=== PATIENT | female | born 1940 | race Caucasian/White ===

== ENCOUNTER 2025-03-16 01:32 | Inpatient (IN) ==
--- NOTE | 2025-03-16 01:55 | Emergency Department Note ---
History of Present Illness General Chief complaint: Arm Pain Stated complaint: L Arm Pain Time Seen by Provider: 03/16/25 01:34 History of Present Illness This 84-year-old female visiting from [place] with history of coronary artery disease who had a stent placed last year with hypertension and cholesterol presents ER for atraumatic left shoulder pain. Patient states she woke from sleep at the [facility] and had left shoulder pain that went to her elbow. She took some Advil and was concerned and came here. She is concerned she could be having another heart issue. Patient has chest pain, dyspnea, fever, chills, cough, congestion, injury to the area. She is actually sleeping on her right side. Patient states she does not get chest pain or winded with walking. She states she feels about baseline. Home Medications Medication Instructions Recorded Confirmed Type bisoprolol fumarate 5 mg tablet 5 mg PO BID 03/16/25 03/16/25 History cholecalciferol (vitamin D3) 100 1,000 unit PO DAILY 03/16/25 03/16/25 History mcg (4,000 unit) capsule clopidogrel 75 mg tablet (Plavix) 75 mg PO DAILY 03/16/25 03/16/25 History empagliflozin 10 mg tablet 10 mg PO DAILY 03/16/25 03/16/25 History (Jardiance) isosorbide mononitrate 30 mg 30 mg PO DAILY 03/16/25 03/16/25 History tablet,extended release 24 hr rosuvastatin 20 mg tablet 20 mg PO HS 03/16/25 03/16/25 History sacubitril 97 mg-valsartan 103 mg 1 tab PO BID 03/16/25 03/16/25 History tablet (Entresto) Allergies Allergy/AdvReac Type Severity Reaction Status Date / Time Gadolinium-Containing Allergy Anaphylaxis Verified 03/16/25 01:46 Contrast Medi Past Med/Surg History Problem List (Updated 03/16/25 @ 02:47 by Elsi Huerta PA-C) Anemia (Acute) Atypical chest pain (Acute) Social History Smoking Status: Never smoker Preferred Language: Sami Feels Safe at Home: Yes Review of Systems A total of 10 systems reviewed and were otherwise negative Physical Exam Vital Signs Vital Signs - 24 hr 03/16/25 01:34 03/16/25 01:42 03/16/25 02:53 Temperature 36.6 C Temperature Source Oral Pulse Rate 97 H Pulse Rate [Apical] 88 Pulse Rhythm [Apical] Regular Respiratory Rate 21 16 Respiratory Effort / Characteristics Non-Labored Non-Labored Respiratory Depth Normal Normal Blood Pressure 173/82 H Blood Pressure [Right Arm] 125/77 Blood Pressure Mean 112 Blood Pressure Mean [Right Arm] 93 Pulse Oximetry 95 97 Oxygen Delivery Method Room Air Room Air Room Air Sepsis Recent Fever Within 48 Hours No Sepsis New/Unexplained Change in Mental Status No Sepsis Action Taken by Nursing No Action Required VITALS: Vitals are noted on the nurse's note and reviewed by myself. Vital signs stable. GENERAL: Pleasant patient, in no acute distress, nondiaphoretic, well-developed well-nourished. SKIN: Capillary reflex less than 2 seconds. HEENT: Normocephalic. PERRLA. EOMI. Nares patent. Mucous membranes moist. Neck is supple without nuchal rigidity. HEART: Regular rate and rhythm LUNGS: Clear to auscultation bilaterally without wheezes, rales or rhonchi. No retractions or accessory muscle use. ABDOMEN: Positive bowel sounds x 4. Normal tympanic percussion. Soft, nontender, without masses or organomegaly. Palacios sign negative. No guarding or rebound tenderness. no CVA tenderness MUSCULOSKELETAL: No gross musculoskeletal defects. Left shoulder nontender to palpation with full range of motion. No signs of infection. NEURO: Patient was alert and oriented to person place and time. No focal neurological deficits. Course Administered Medications Discontinued Medications Ioversol (Optiray 320 125ml) 118 ml IV ONCE ONE Stop: 03/16/25 02:13 Last Admin: 03/16/25 02:12 Dose: 118 ml Documented By: PIOTR Medical Decision Making Medical Records Attestation: I reviewed the patient's medical records. Home Medications Current Medication List: was personally reviewed by me Laboratory Data Attestation: I reviewed the patient's lab results. 03/16/25 01:52 03/16/25 01:52 Lab Results 03/16/25 03/16/25 Range/Units 01:52 01:55 WBC 7.03 (4.8-10.8) K/ul RBC 4.20 (4.20-5.40) M/uL Hgb 10.3 L (12.0-16.0) g/dl POC Hgb 11.6 L (12.0-16.0) g/dl Hct 33.0 L (37.0-47.0) % POC Hct 34 L (37-47) % MCV 78.6 L (80.0-100.0) fL MCH 24.5 L (25.0-34.0) pg MCHC 31.2 L (32.0-36.0) g/dL RDW Std Deviation 43.4 (36.4-46.3) fL RDW Coeff of Tae 15.2 H (11.5-14.5) % Plt Count 367 (130-400) K/uL MPV 8.7 L (9.4-12.4) fL Immature Gran % (Auto) 0.1 % Neut % (Auto) 60.8 % Lymph % (Auto) 25.9 % Bureau % (Auto) 10.0 % Eos % (Auto) 2.6 % Baso % (Auto) 0.6 % Neut # (Auto) 4.28 (1.40-6.50) K/uL Lymph # (Auto) 1.82 (1.20-3.40) K/uL Bureau # (Auto) 0.70 H (0.11-0.59) K/uL Eos # (Auto) 0.18 (0.00-0.50) K/uL Baso # (Auto) 0.04 (0.00-0.20) K/uL Immature Gran # (Auto) 0.01 (0.01-0.20) K/uL POC Sodium 138 (135-144) mmol/L Sodium 137 (136-145) mmol/L POC Potassium 4.0 (3.3-5.0) mmol/L Potassium 4.1 (3.5-5.1) mmol/L POC Chloride 105 (101-112) mmol/L Chloride 104 (98-107) mmol/L Carbon Dioxide 24 (21-32) mmol/L POC Total CO2 24 (24-31) mmol/L Anion Gap 9 (3-11) POC Anion Gap 14.0 L (16-25) mmol/L POC BUN 21 H (7-18) mg/dl BUN 22 (6-23) mg/dl Creatinine 1.10 (0.6-1.2) mg/dl POC Creatinine 1.2 (0.6-1.3) mg/dl Est Cr Clr Drug Dosing 36.9 ml/min eGFR 49.55 BUN/Creatinine Ratio 20.0 (10-20) Glucose 162 H (70-99(Fasting)) mg/dl POC Glucose (other) 164 H (70-99) mg/dl Calcium 9.8 (8.6-10.3) mg/dl POC Ioniz Calcium Elsie 1.24 (1.12-1.32) mmol/l Total Bilirubin 0.4 (0.2-1.0) mg/dl AST 15 (13-39) U/L ALT 9 (7-52) U/L Alkaline Phosphatase 81 (34-104) U/L Troponin I High Sens 24.0 H (0-14) pg/ml Total Protein 7.2 (6.0-8.3) gm/dl Albumin 3.8 (3.4-5.0) gm/dl Globulin 3.4 (2.5-4.0) gm/dl Albumin/Globulin Ratio 1.1 (0.9-2) Lipase 19 (11-82) U/L Imaging Data Attestation: I personally reviewed and interpreted this imaging study as follows: Radiologist's Impression: Chest CTA 03/16/25 01:42 EXAM: CT angio chest PE protocol CLINICAL HISTORY: Chest Pain, eval for PE. TECHNIQUE: Contiguous axial images were obtained from the neck base through the upper abdomen following intravenous administration of iodinated contrast material. Angiographic images were processed, and 3D MIP images were acquired for interpretation. If IV contrast material had not been administered, the likelihood of detecting abnormalities relevant to the patient's condition would have been substantially decreased. Coronal and sagittal 3D MIPs were likewise performed and indicated to increase the sensitivity of detecting diffuse clinically relevant pathology. The CT scan was performed according to ALARA (as low as reasonably achievable). 118 cc of Optiray 320 was administered. COMPARISON: None. FINDINGS: Adequate contrast bolus was achieved without evidence of pulmonary embolism. Cardiomegaly is present with a dilated main pulmonary trunk measuring 34 mm in caliber. Mosaic attenuation is noted in both lungs. Bilateral mild basal atelectasis is present. The central airways are patent. There is no pleural effusion. No pericardial effusion is identified. The thyroid is unremarkable. No mediastinal, hilar, or axillary lymphadenopathy is noted. No suspicious lytic or sclerotic osseous lesions are identified. Approximately 52 x38mm soft tissue density lesion with peripheral calcifications and involvement of underlying chest muscles is seen in right breast. 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 IMPRESSION: 1. No evidence of pulmonary embolism. 2. Cardiomegaly is present with a dilated main pulmonary trunk measuring 34 mm in caliber, suggestive of pulmonary hypertension. Advised echocardiogram correlation. 3. Mosaic attenuation in both lungs, likely due to expiratory scan. Electronically signed by Adam Unger 03-16-2025 02:54 AM Shoulder X-Ray 03/16/25 01:42 EXAM: XR shoulder LT min 2V routine CLINICAL HISTORY: pain TECHNIQUE: Radiograph of the left shoulder was acquired. COMPARISON: None. FINDINGS: Multiple osteophytes arise from the head of the humerus with decreased glenohumeral joint space. There is no evidence of acute fracture or dislocation. The acromioclavicular joint space is preserved. The adjacent soft tissues appear unremarkable, with no evidence of joint effusion. IMPRESSION: 1. No acute osseous abnormality. 2. Degenerative changes in the form of multiple osteophytes arising from the head of the humerus with decreased glenohumeral joint space. Electronically signed by Adam Unger 03-16-2025 03:54 AM MDM Narrative Prior records/ancillary studies reviewed. Triage Nursing notes reviewed. Additional history obtained from family. The patient's history was concerning for left upper shoulder pain. Differential diagnosis: Etiologies such as cardiac ischemia, aortic dissection, pulmonary embolism, pneumonia, pneumothorax, musculoskeletal, infections, pericarditis, myocarditis, esophageal rupture, gastrointestinal, as well as others were entertained. Physical examination: As above. ER treatment provided: An order was placed for continuous cardiac monitoring. The monitor shows a rate of 60-100 with a sinus rhythm per my interpretation. Patient declined pain medicine On reassessment the patient felt better. Diagnostic interpretation by me: #1 the electrocardiogram was ordered for left upper shoulder pain EKG: Normal sinus, Q waves in the inferior leads, rate of 93. Impression normal sinus rhythm Q waves in the inferior leads independently interpreted by myself #2 EKG ordered for elevated troponin EKG: Normal sinus, Q waves in inferior leads, no acute ST-T wave changes, rate 88. Normal sinus rhythm Q waves in inferior leads independently interpreted by myself The labs Independently Interpreted by myself revealed slightly elevated troponin repeat was ordered No worrisome leukocytosis, mild anemia Mild hyperglycemia that DKA Imaging studies: Imaging was reviewed and read by radiology HEART SCORE: Hx: high/mod/low suspicion: 1 ECG: ST depression/nonspecific changes/normal: 0 Age: Greater than 65/45-64/less than 45: 2 Risk factors: (Hypertension, hyperlipidemia, diabetes, coronary disease, tobacco use, cocaine use): 2 Troponin: Greater than 2 times normal limits/1-2 times normal limits/normal: 1 Total: 6 Consultation: A consultation was placed with the hospitalist. The case was discussed and diagnostics were reviewed. The patient was evaluated in the ER for further treatment. Exam and history seem consistent with left upper shoulder pain with concerns for possible cardiac in etiology. First troponin was slightly elevated. Repeat was ordered. First EKG is nonischemic. Patient's risk factor is a moderate. Patient is agreeable treatment plan of admission. Medicine was consulted and the case was discussed. She will be admitted to the medical service. By the evaluation outlined above emergent etiologies such as aortic dissection, pulmonary embolism, pneumonia, pneumothorax, infections, pericarditis, myocarditis, gastrointestinal, as well as others were deemed relatively unlikely. The pt informed about the findings as listed above. All questions were answered and pleased with the treatment. The chart was completed utilizing [employer] Speech voice recognition software. Grammatical errors, random word insertions, pronoun errors, and incomplete sentences are an occassional consequence of this system due to software limitations, ambient noise, and hardware issues. Any formal questions or concerns about the content, text, or information contained within the body of this dictation should be directly addressed to the physician digital assistant for clarification. Impression & Plan Atypical chest pain, Anemia Discharge Plan Visit Data Chief Complaint: Arm Pain Stated Complaint: L Arm Pain ED Provider: Shira Mayberry ED Midlevel Provider: Elsi Huerta Discharge Problem: Atypical chest pain, Anemia Patient Disposition: Admitted As Inpatient Condition: Good Forms Stand Alone Forms: My [place] Prescriptions Prescriptions: No Action clopidogrel [Plavix] 75 mg Tablet 75 mg PO DAILY isosorbide mononitrate 30 mg Tablet Extended Release 24 Hr 30 mg PO DAILY bisoprolol fumarate 5 mg Tablet 5 mg PO BID rosuvastatin 20 mg Tablet 20 mg PO HS cholecalciferol (vitamin D3) 100 mcg (4,000 unit) Capsule 1,000 unit PO DAILY sacubitril-valsartan [Entresto] 97-103 mg Tablet 1 tab PO BID Jardiance 10 mg tablet 10 mg PO DAILY Referrals Referrals: PCP,NO [Physician] -
[2025-03-16 02:06] LABS: Hematocrit (blood only) 33.0 % (37.0-47.0); Hemoglobin 10.3 g/dl (12.0-16.0); Immature Granulocytes # (auto) 0.01 K/uL (0.01-0.20); Immature Granulocytes % (auto) 0.1 %; Mean Corpuscular Hemoglobin 24.5 pg (25.0-34.0); Mean Corpuscular Volume 78.6 fL (80.0-100.0); Platelet Count 367 K/uL (130-400); RDW Standard Deviation 43.4 fL (36.4-46.3); Red Blood Count 4.20 M/uL (4.20-5.40); White Blood Count 7.03 K/ul (4.8-10.8)
[2025-03-16] MEDS: OPTIRAY 320 125ml IV ONE (02:12)
[2025-03-16 02:26] LABS: Alanine Aminotransferase 9.0 U/L (7-52); Albumin Globulin Ratio 1.1 (0.9-2); Albumin Level 3.8 gm/dl (3.4-5.0); Alkaline Phosphatase 81.0 U/L (34-104); Anion Gap 9.0 (3-11); Bilirubin,Total 0.4 mg/dl (0.2-1.0); Blood Urea Nitrogen 22.0 mg/dl (6-23); Calcium 9.8 mg/dl (8.6-10.3); Carbon Dioxide 24.0 mmol/L (21-32); Chloride 104.0 mmol/L (98-107); Creatinine Clr Calc Pharmacy 36.9 ml/min; Globulin 3.4 gm/dl (2.5-4.0); Glucose 162.0 mg/dl (70-99(Fasting)); Lipase 19.0 U/L (11-82); Potassium 4.1 mmol/L (3.5-5.1); Sodium 137.0 mmol/L (136-145); Total Protein 7.2 gm/dl (6.0-8.3)
--- NOTE | 2025-03-16 02:55 | CT Scan Report ---
EXAM: CT angio chest PE protocol CLINICAL HISTORY: Chest Pain, eval for PE. TECHNIQUE: Contiguous axial images were obtained from the neck base through the upper abdomen following intravenous administration of iodinated contrast material. Angiographic images were processed, and 3D MIP images were acquired for interpretation. If IV contrast material had not been administered, the likelihood of detecting abnormalities relevant to the patient's condition would have been substantially decreased. Coronal and sagittal 3D MIPs were likewise performed and indicated to increase the sensitivity of detecting diffuse clinically relevant pathology. The CT scan was performed according to ALARA (as low as reasonably achievable). 118 cc of Optiray 320 was administered. COMPARISON: None. FINDINGS: Adequate contrast bolus was achieved without evidence of pulmonary embolism. Cardiomegaly is present with a dilated main pulmonary trunk measuring 34 mm in caliber. Mosaic attenuation is noted in both lungs. Bilateral mild basal atelectasis is present. The central airways are patent. There is no pleural effusion. No pericardial effusion is identified. The thyroid is unremarkable. No mediastinal, hilar, or axillary lymphadenopathy is noted. No suspicious lytic or sclerotic osseous lesions are identified. Approximately 52 x38mm soft tissue density lesion with peripheral calcifications and involvement of underlying chest muscles is seen in right breast. 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 IMPRESSION: 1. No evidence of pulmonary embolism. 2. Cardiomegaly is present with a dilated main pulmonary trunk measuring 34 mm in caliber, suggestive of pulmonary hypertension. Advised echocardiogram correlation. 3. Mosaic attenuation in both lungs, likely due to expiratory scan. Electronically signed by Adam Unger 03-16-2025 02:54 AM
--- NOTE | 2025-03-16 03:47 | History & Physical Report ---
Date of Service March 16, 2025 Assessment & Plan (1) Asymptomatic hypertensive urgency: Plan: Assessment and plan below following discussion of case with ED provider and reviewing patient history/pertinent normal/abnormal diagnostic test results. Hypertensive urgency Secondary to left shoulder pain Troponin elevation secondary to above CHF, euvolemic hx CAD status post stent (2023) hyperlipidemia, on statin Rx Incidental finding of right breast density on imaging, hx right breast cancer status post surgery/radiation, patient says she has had a palpable lump for some time now which she attributes to scarring chronic anemia, hemoglobin at baseline Hyperglycemia rule out DM OBS Admit to PCU given troponin elevation Analgesia Titrate home BP meds Follow troponin TTE for progression May need Cardiology input Orthopedics consult re: left shoulder pain Follow-up with PCP regarding right breast density on imaging. (Patient provided with CD of images and and copy report.) Check hemoglobin A1c DVT prophylaxis. Lovenox subcu Full code Text document was generated using [employer] voice recognition software. It may contain grammatical or spelling errors. Kindly contact undersigned for clarification of any documentation item in question. History of Present Illness Chief Complaint: Left shoulder pain Primary Care Provider: PCP: PEGGY MINER Engineer Sergeant : Dr. Charlie Palacios, [facility] History obtained from patient and records. Medical history significant for CHF, CAD status post stent (2023), hypertension, hyperlipidemia, right breast cancer status post surgery/radiation, chronic anemia (baseline hemoglobin of 10). Patient is a resident of [place] who arrived in [facility] 2 days ago to attend a local convention. Recent confinement last month at [facility] for lower GI bleed attributed to diverticulosis. Hemoglobin 10 during confinement as per patient. Patient has had intermittent left shoulder pain occurring about twice a year for about the last 5 years. Decreased ability to elevate left upper extremity for a few years now as per dawna ocampo. No recollection of trauma or exertion except for an incident [place] the beach last month after a person accidentally bumped into her beach chair. Transient neck pain following episode. Patient roused from sleep by more intense achy left shoulder pain going to the elbow. Denies headache, chest pain, SOB. Denies cough or fluid retention. Patient had substernal chest without shoulder radiation last year when she had her heart attack [facility] Patient compliant with home medications. Denies unusual stress. [facility] catering staff member concerned about uncontrolled blood pressure on last outpatient visit last month. Denies sleep apnea concerns. SBP 170s upon arrival at the ER. Patient currently comfortable at the ER. 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 Allergies Allergy/AdvReac Type Severity Reaction Status Date / Time Gadolinium-Containing Allergy Anaphylaxis Verified 03/16/25 01:46 Contrast Medi Home Medications Medication Instructions Recorded Confirmed Type bisoprolol fumarate 5 mg tablet 5 mg PO BID 03/16/25 03/16/25 History cholecalciferol (vitamin D3) 100 1,000 unit PO DAILY 03/16/25 03/16/25 History mcg (4,000 unit) capsule clopidogrel 75 mg tablet (Plavix) 75 mg PO DAILY 03/16/25 03/16/25 History empagliflozin 10 mg tablet 10 mg PO DAILY 03/16/25 03/16/25 History (Jardiance) isosorbide mononitrate 30 mg 30 mg PO DAILY 03/16/25 03/16/25 History tablet,extended release 24 hr rosuvastatin 20 mg tablet 20 mg PO HS 03/16/25 03/16/25 History sacubitril 97 mg-valsartan 103 mg 1 tab PO BID 03/16/25 03/16/25 History tablet (Entresto) Past Med/Surg History Problem List (Updated 03/16/25 @ 05:30 by Wilman Jose MD) Asymptomatic hypertensive urgency Anemia (Acute) Atypical chest pain (Acute) Social History Smoking Status: Never smoker Hx Alcohol Use: Yes Alcohol type: beer Hx Substance Use: No Preferred Language: Emirati Communication Ability: Effective Store Team Leader Required: No Beliefs That Will Affect Care: None Current Living Situation: Alone Current Living Situation Comment: house, alone Other Information That Helps Us Care for You: No Feels Safe at Home: Yes Safety Concerns: Feels Safe At This Time Review of Systems Review of Systems: As per HPI, all other systems reviewed and negative Physical Exam Physical Exam: GENERAL: Comfortable, pleasant, obese, no respiratory distress SKIN: Pallor, warm HEENT: Pale palpebral conjunctivae, no ptosis, dry buccal mucosa NECK : Supple, no tenderness CHEST : CTA, no tenderness HEART : RRR, systolic murmur ABDOMEN: Some distention, nontender EXTREMITIES : Left shoulder tenderness with limited elevation, no LE swelling/tenderness, palpable pulses, no other conspicuous deformities noted NEUROLOGIC : Coherent, no facial asymmetry, no other gross focality Results & Data Results & Data Vital Signs (Past 12 Hours) Vital Signs Temp Pulse Pulse Resp BP BP Pulse Ox 03/16/25 02:53 88 16 125/77 97 03/16/25 01:42 03/16/25 01:34 36.6 C 97 H 21 173/82 H 95 O2 Del Method 03/16/25 02:53 Room Air 03/16/25 01:42 Room Air 03/16/25 01:34 Room Air Laboratory Results Laboratory Results WBC 7.03 K/ul (4.8-10.8) 03/16/25 01:52 RBC 4.20 M/uL (4.20-5.40) 03/16/25 01:52 Hgb 10.3 g/dl (12.0-16.0) L 03/16/25 01:52 POC Hgb 11.6 g/dl (12.0-16.0) L 03/16/25 01:55 Hct 33.0 % (37.0-47.0) L 03/16/25 01:52 POC Hct 34 % (37-47) L 03/16/25 01:55 MCV 78.6 fL (80.0-100.0) L 03/16/25 01:52 MCH 24.5 pg (25.0-34.0) L 03/16/25 01:52 MCHC 31.2 g/dL (32.0-36.0) L 03/16/25 01:52 RDW Std Deviation 43.4 fL (36.4-46.3) 03/16/25 01:52 RDW Coeff of Tae 15.2 % (11.5-14.5) H 03/16/25 01:52 Plt Count 367 K/uL (130-400) 03/16/25 01:52 MPV 8.7 fL (9.4-12.4) L 03/16/25 01:52 Immature Gran % (Auto) 0.1 % 03/16/25 01:52 Neut % (Auto) 60.8 % 03/16/25 01:52 Lymph % (Auto) 25.9 % 03/16/25 01:52 Sharkey % (Auto) 10.0 % 03/16/25 01:52 Eos % (Auto) 2.6 % 03/16/25 01:52 Baso % (Auto) 0.6 % 03/16/25 01:52 Neut # (Auto) 4.28 K/uL (1.40-6.50) 03/16/25 01:52 Lymph # (Auto) 1.82 K/uL (1.20-3.40) 03/16/25 01:52 Sharkey # (Auto) 0.70 K/uL (0.11-0.59) H 03/16/25 01:52 Eos # (Auto) 0.18 K/uL (0.00-0.50) 03/16/25 01:52 Baso # (Auto) 0.04 K/uL (0.00-0.20) 03/16/25 01:52 Immature Gran # (Auto) 0.01 K/uL (0.01-0.20) 03/16/25 01:52 POC Sodium 138 mmol/L (135-144) 03/16/25 01:55 Sodium 137 mmol/L (136-145) 03/16/25 01:52 POC Potassium 4.0 mmol/L (3.3-5.0) 03/16/25 01:55 Potassium 4.1 mmol/L (3.5-5.1) 03/16/25 01:52 POC Chloride 105 mmol/L (101-112) 03/16/25 01:55 Chloride 104 mmol/L (98-107) 03/16/25 01:52 Carbon Dioxide 24 mmol/L (21-32) 03/16/25 01:52 POC Total CO2 24 mmol/L (24-31) 03/16/25 01:55 Anion Gap 9 (3-11) 03/16/25 01:52 POC Anion Gap 14.0 mmol/L (16-25) L 03/16/25 01:55 POC BUN 21 mg/dl (7-18) H 03/16/25 01:55 BUN 22 mg/dl (6-23) 03/16/25 01:52 Creatinine 1.10 mg/dl (0.6-1.2) 03/16/25 01:52 POC Creatinine 1.2 mg/dl (0.6-1.3) 03/16/25 01:55 Est Cr Clr Drug Dosing 36.9 ml/min 03/16/25 01:52 eGFR 49.55 03/16/25 01:52 BUN/Creatinine Ratio 20.0 (10-20) 03/16/25 01:52 Glucose 162 mg/dl (70-99(Fasting)) H 03/16/25 01:52 POC Glucose (other) 164 mg/dl (70-99) H 03/16/25 01:55 Calcium 9.8 mg/dl (8.6-10.3) 03/16/25 01:52 POC Ioniz Calcium Elsie 1.24 mmol/l (1.12-1.32) 03/16/25 01:55 Total Bilirubin 0.4 mg/dl (0.2-1.0) 03/16/25 01:52 AST 15 U/L (13-39) 03/16/25 01:52 ALT 9 U/L (7-52) 03/16/25 01:52 Alkaline Phosphatase 81 U/L (34-104) 03/16/25 01:52 Troponin I High Sens 24.0 pg/ml (0-14) H 03/16/25 01:52 Total Protein 7.2 gm/dl (6.0-8.3) 03/16/25 01:52 Albumin 3.8 gm/dl (3.4-5.0) 03/16/25 01:52 Globulin 3.4 gm/dl (2.5-4.0) 03/16/25 01:52 Albumin/Globulin Ratio 1.1 (0.9-2) 03/16/25 01:52 Lipase 19 U/L (11-82) 03/16/25 01:52 Impressions Chest CTA 03/16/25 01:42 EXAM: CT angio chest PE protocol CLINICAL HISTORY: Chest Pain, eval for PE. TECHNIQUE: Contiguous axial images were obtained from the neck base through the upper abdomen following intravenous administration of iodinated contrast material. Angiographic images were processed, and 3D MIP images were acquired for interpretation. If IV contrast material had not been administered, the likelihood of detecting abnormalities relevant to the patient's condition would have been substantially decreased. Coronal and sagittal 3D MIPs were likewise performed and indicated to increase the sensitivity of detecting diffuse clinically relevant pathology. The CT scan was performed according to ALARA (as low as reasonably achievable). 118 cc of Optiray 320 was administered. COMPARISON: None. FINDINGS: Adequate contrast bolus was achieved without evidence of pulmonary embolism. Cardiomegaly is present with a dilated main pulmonary trunk measuring 34 mm in caliber. Mosaic attenuation is noted in both lungs. Bilateral mild basal atelectasis is present. The central airways are patent. There is no pleural effusion. No pericardial effusion is identified. The thyroid is unremarkable. No mediastinal, hilar, or axillary lymphadenopathy is noted. No suspicious lytic or sclerotic osseous lesions are identified. Approximately 52 x38mm soft tissue density lesion with peripheral calcifications and involvement of underlying chest muscles is seen in right breast. 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 IMPRESSION: 1. No evidence of pulmonary embolism. 2. Cardiomegaly is present with a dilated main pulmonary trunk measuring 34 mm in caliber, suggestive of pulmonary hypertension. Advised echocardiogram correlation. 3. Mosaic attenuation in both lungs, likely due to expiratory scan. Electronically signed by Adam Unger 03-16-2025 02:54 AM Diagnostic Findings EKG as per my interpretation :Rate 95, NSR, LAD, LAFB, inferior infarct, acute abnormalities inferior leads
--- NOTE | 2025-03-16 03:57 | XRay Report ---
EXAM: XR shoulder LT min 2V routine CLINICAL HISTORY: pain TECHNIQUE: Radiograph of the left shoulder was acquired. COMPARISON: None. FINDINGS: Multiple osteophytes arise from the head of the humerus with decreased glenohumeral joint space. There is no evidence of acute fracture or dislocation. The acromioclavicular joint space is preserved. The adjacent soft tissues appear unremarkable, with no evidence of joint effusion. IMPRESSION: 1. No acute osseous abnormality. 2. Degenerative changes in the form of multiple osteophytes arising from the head of the humerus with decreased glenohumeral joint space. Electronically signed by Adam Unger 03-16-2025 03:54 AM
[2025-03-16] MEDS ORDERED: MoRPHine SULFATE 2 MG/ML CARP IV PRN (04:15)
[2025-03-16] MEDS ORDERED: PROMETHAZINE 6.25 MG/50.25 ML BAG IV PRN (04:15)
[2025-03-16] MEDS ORDERED: ACETAMINOPHEN 325 MG TAB PO PRN (04:15)
[2025-03-16 05:03] LABS: Partial Thromboplastin Time 23 Seconds (21-31)
[2025-03-16] MEDS ORDERED: NITROGLYCERIN SL 0.4 MG/TAB TAB SL PRN (06:30)
[2025-03-16] MEDS: SODIUM CHLORIDE 0.9% 1,000 ML IV ONE (06:35)
[2025-03-16] MEDS: BISOPROLOL FUMARATE 5 MG TAB PO SCH (06:36)
[2025-03-16 07:37] LABS: Hemoglobin A1C 6.3 % (4.5-5.6)
[2025-03-16] MEDS: EMPAGLIFLOZIN 10 MG TAB PO SCH (08:42)
[2025-03-16] MEDS: CLOPIDOGREL BISULFATE 75 MG TAB PO SCH (08:42)
[2025-03-16] MEDS: ISOSORBIDE MONO EXTENDED REL 30 MG TABCR PO SCH (08:43)
[2025-03-16] MEDS: ENOXAPARIN INJ 40 MG/0.4 ML SYR SQ SCH (08:43)
[2025-03-16] MEDS: VALSARTAN/SACUBITRIL 103/97MG TAB PO SCH (08:44)
[2025-03-16] MEDS ORDERED: BISOPROLOL FUMARATE 5 MG TAB PO SCH (09:00)
--- NOTE | 2025-03-16 09:32 | Hospitalist Progress Note ---
Date of Service March 16, 2025 Assessment & Plan (1) Left shoulder pain: (2) Elevated troponin: (3) Prediabetes: (4) CHF (congestive heart failure): (5) Coronary artery disease: (6) Hypertension: (7) Hyperlipidemia: (8) History of breast cancer: (9) Chronic anemia: Plan 84 year old female resident of [facility], operated by [facility] in town for local convention with PMH significant for CHF, CAD s/p stent (2023), hypertension, hyperlipidemia, history of right breast cancer s/p surgery and radiation, chronic anemia (baseline Hgb 10) who presented to the ED on 03/16/2025 with left shoulder pain. Left shoulder pain Patient reports severe acute left shoulder pain that woke her from sleep-> currently resolved X-ray revealed degenerative changes with decreased glenohumeral joint space Ortho consulted and recommending no acute intervention Supportive care with pain medicine and ice PRN Elevated troponin CAD s/p stent Troponin uptrending 90-> 169-> 518 Trend until peak CTA without evidence of PE, suggestive of pulmonary hypertension EKG reveals NSR with possible ST elevation in V3-V6, no baseline EKG to compare to Echo revealed LVEF 55-60% with no wall motion abnormality, non-dilated chambers, no significant valvular pathology Cardiology consulted and planning for cath on Tuesday as long as no chest pain or ECG changes Continue home plavix Heparin drip for 48 hours CHF Hypertension Hyperlipidemia Follows with [facility] in [place] Notes history of hard to control hypertension Continue Entresto, bisoprolol, imdur, rosuvastatin, jardiance Prediabetes Hyperglycemia 162 on admission A1C 6.3% Discussed with patient and advised follow up with PCP History of breast cancer s/p surgery/radiation Chest CTA revealed soft tissue density lesion with peripheral calcifications and involvement of underlying chest muscles in right breast Follow up with PCP Chronic anemia Hgb at baseline Monitor CBC DVT Prophylaxis: SQ Lovenox Code Status: FULL CODE PCP: Cedrick Gregorio ([place]) Disposition: awaiting cardiac cath results Tuesday Patient seen in collaboration with Dr. Momin. Please see addendum. Admission and Anticipated Discharge Date Admission Date: March 16, 2025 Supervising Physician Co-Signing Physician Notes 84 yo F w/ PMH of CHF, CAD s/p stent (2023), HTN, HLD, right breast cancer s/p Sx and radiation, chronic anemia (Hb around 10) presents to ED w/ co left shoulder pain waking her up from sleep. Pt was worked up in the line of cardiac cause and troponin noted to be uptrending. Left shoulder pain: XR reviewed, has chronic pain but now has acute on chronic nature. Ortho evaled. Mx pain. likely NSTEMI: trop elevated and pt denies chest pain but had left shoulder pain which has gotten better now. Will start hep drip for concern of nstemi. cardio on board, await recs. On exam: RA, NAD, no ble edema. Mild Lt shoulder pain at forward flexion beyond 100 degrees. rest of the exam as above. total time spent independently: 20 min I have seen and examined the patient and have discussed the case with the provider above. I agree with the assessment and plan as stated. Subjective Patient seen in the ED Reports her left shoulder pain is resolved Denies chest pain, SOB, abdominal pain, N/V Review of Systems Review of Systems: All systems reviewed & are unremarkable except as noted in HPI & below Physical Exam Physical Exam: General/Psych: overweight, sitting up in bed, NAD, conversing easily Head: normocephalic, atraumatic Eyes: normal inspection, PERRL, conjunctivae pink ENT: external ear and nose normal, oropharynx normal Neck: normal visual inspection, trachea midline Respiratory: normal respiratory effort, lungs clear to auscultation, no wheeze/rales/rhonchi, no accessory muscle use Cardiovascular: regular rate and rhythm, no murmur/rub/gallop Extremities: no cyanosis or clubbing, normal peripheral pulses, no BLE edema Abdomen/GI: normal bowel sounds, soft, nontender Neurologic/MSK: A+Ox3, motor strength 5/5, moves all extremities Skin: no rashes, normal color, warm and dry Results & Data Results & Data Vital Signs (Past 12 Hours) Vital Signs Temp Pulse Pulse Resp BP BP Pulse Ox 03/16/25 08:33 76 18 162/93 H 95 03/16/25 07:27 74 16 152/98 H 97 03/16/25 07:27 03/16/25 06:43 79 20 163/78 H 96 03/16/25 05:13 03/16/25 04:00 78 17 150/78 H 95 03/16/25 02:53 88 16 125/77 97 03/16/25 01:47 94 H 03/16/25 01:42 03/16/25 01:34 36.6 C 97 H 21 173/82 H 95 Pulse Ox O2 Del Method O2 Del Method 03/16/25 08:33 Room Air 03/16/25 07:27 Room Air 03/16/25 07:27 97 Room Air 03/16/25 06:43 Room Air 03/16/25 05:13 96 Room Air 03/16/25 04:00 Room Air 03/16/25 02:53 Room Air 03/16/25 01:47 03/16/25 01:42 Room Air 03/16/25 01:34 Room Air Laboratory Results Short CBC 03/16/25 Range/Units 01:52 WBC 7.03 (4.8-10.8) K/ul Hgb 10.3 L (12.0-16.0) g/dl Hct 33.0 L (37.0-47.0) % Plt Count 367 (130-400) K/uL BMP 03/16/25 01:52 Sodium 137 Potassium 4.1 Chloride 104 Carbon Dioxide 24 BUN 22 Creatinine 1.10 Glucose 162 H Calcium 9.8 Liver Function 03/16/25 Range/Units 01:52 Total Bilirubin 0.4 (0.2-1.0) mg/dl AST 15 (13-39) U/L ALT 9 (7-52) U/L Alkaline Phosphatase 81 (34-104) U/L Albumin 3.8 (3.4-5.0) gm/dl I have independently reviewed and interpreted patient's admitting labs including CBC, CMP Diagnostic Findings Chest CTA 03/16/25 01:42 EXAM: CT angio chest PE protocol CLINICAL HISTORY: Chest Pain, eval for PE. TECHNIQUE: Contiguous axial images were obtained from the neck base through the upper abdomen following intravenous administration of iodinated contrast material. Angiographic images were processed, and 3D MIP images were acquired for interpretation. If IV contrast material had not been administered, the likelihood of detecting abnormalities relevant to the patient's condition would have been substantially decreased. Coronal and sagittal 3D MIPs were likewise performed and indicated to increase the sensitivity of detecting diffuse clinically relevant pathology. The CT scan was performed according to ALARA (as low as reasonably achievable). 118 cc of Optiray 320 was administered. COMPARISON: None. FINDINGS: Adequate contrast bolus was achieved without evidence of pulmonary embolism. Cardiomegaly is present with a dilated main pulmonary trunk measuring 34 mm in caliber. Mosaic attenuation is noted in both lungs. Bilateral mild basal atelectasis is present. The central airways are patent. There is no pleural effusion. No pericardial effusion is identified. The thyroid is unremarkable. No mediastinal, hilar, or axillary lymphadenopathy is noted. No suspicious lytic or sclerotic osseous lesions are identified. Approximately 52 x38mm soft tissue density lesion with peripheral calcifications and involvement of underlying chest muscles is seen in right breast. 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 IMPRESSION: 1. No evidence of pulmonary embolism. 2. Cardiomegaly is present with a dilated main pulmonary trunk measuring 34 mm in caliber, suggestive of pulmonary hypertension. Advised echocardiogram correlation. 3. Mosaic attenuation in both lungs, likely due to expiratory scan. Electronically signed by Adam Unger 03-16-2025 02:54 AM Shoulder X-Ray 03/16/25 01:42 EXAM: XR shoulder LT min 2V routine CLINICAL HISTORY: pain TECHNIQUE: Radiograph of the left shoulder was acquired. COMPARISON: None. FINDINGS: Multiple osteophytes arise from the head of the humerus with decreased glenohumeral joint space. There is no evidence of acute fracture or dislocation. The acromioclavicular joint space is preserved. The adjacent soft tissues appear unremarkable, with no evidence of joint effusion. IMPRESSION: 1. No acute osseous abnormality. 2. Degenerative changes in the form of multiple osteophytes arising from the head of the humerus with decreased glenohumeral joint space. Electronically signed by Adam Unger 03-16-2025 03:54 AM
--- NOTE | 2025-03-16 10:03 | Orthopedic Consultation ---
Date of Consultation March 16, 2025 Assessment & Plan (1) Left shoulder pain: - This patient has chronic intermittent left shoulder pain. She presented to the ER with acute onset of left shoulder pain with radiation to the elbow. This has resolved since she has been in the ER. Currently she is back to her baseline. She has episodes of left shoulder pain occasionally throughout the year. This has been ongoing for at least 5 years. She has never had any formal treatment for her shoulder. X-rays show severe osteoarthritis with rotator cuff arthropathy. This is a chronic problem. There is no acute surgical intervention for this needed at this time. -Patient typically is able to tolerate her activities of daily living in her current status with her shoulder pain. We discussed that she could seek surgical opinion for possible treatment as an outpatient. This would likely be a reverse total shoulder arthroplasty. This can be worked up as an outpatient. -I do think that her shoulder pain may have some element of referred pain, her troponins have been significantly elevated and trending upwards during her time in the hospital here. She did not have any new injury or trauma to the shoulder preceding this pain. - Chronic osteoarthritis, recommend pain control with oral medications - Patient may weight-bear as tolerated about the left upper extremity - Ice to the left shoulder as needed for pain - Currently no indication for any acute surgical intervention. I recommend outpatient follow-up with an orthopedic surgeon in the [facility]. - Orthopedic service will sign off at this time. Please reach out to me for any new concerns regarding left shoulder I would be happy to see the patient for reevaluation. - Since she is from the [facility] she may follow-up with me on an as- needed basis. History of Present Illness Reason for Consultation: Left shoulder pain Attending Physician: Lenora Momin MD History of Present Illness This patient is an 84-year-old [id number] female who lives in the [place] area. She is here for a conference. She woke up with significant left shoulder pain, she has a extensive cardiac history with recent stenting in 2023. She was concerned that this was a heart issue and presented to the ER for evaluation. Initially she had pain in her left shoulder which seem to radiate to her elbow. That pain has since resolved. She has had ongoing shoulder pain for many years. She has never had any formal treatment or evaluation for this. She primarily lives with the pain, states that she does okay as long she does not raise her arms overhead too much. She does not take any medications, she is never had any injections into the shoulder. She denies any numbness or tingling about the left upper extremity. She denies any fevers or chills. She was recently hospitalized for anemia due to a lower GI bleed. She was admitted to the observation unit due to hypertensive urgency today. She has had elevated troponins. Her left shoulder pain has resolved since being in the hospital. She denies any new injury or trauma to the left shoulder. Her past medical history includes coronary artery status post stenting, hypertension, hyperlipidemia, CHF, anemia, prediabetes. Her only surgery was cardiac stenting in 2023. She denies smoking, she drinks alcohol once daily, she denies any illicit drug use. She lives in the [facility] she is typically independent at baseline. Allergies Allergy/AdvReac Type Severity Reaction Status Date / Time Gadolinium-Containing Allergy Anaphylaxis Verified 03/16/25 01:46 Contrast Medi Home Medications Medication Instructions Recorded Confirmed Type bisoprolol fumarate 5 mg tablet 5 mg PO BID 03/16/25 03/16/25 History cholecalciferol (vitamin D3) 100 1,000 unit PO DAILY 03/16/25 03/16/25 History mcg (4,000 unit) capsule clopidogrel 75 mg tablet (Plavix) 75 mg PO DAILY 03/16/25 03/16/25 History empagliflozin 10 mg tablet 10 mg PO DAILY 03/16/25 03/16/25 History (Jardiance) isosorbide mononitrate 30 mg 30 mg PO DAILY 03/16/25 03/16/25 History tablet,extended release 24 hr rosuvastatin 20 mg tablet 20 mg PO HS 03/16/25 03/16/25 History sacubitril 97 mg-valsartan 103 mg 1 tab PO BID 03/16/25 03/16/25 History tablet (Entresto) Patient History Medical History History of breast cancer Social History Smoking Status: Never smoker Hx Alcohol Use: Yes Alcohol type: beer Hx Substance Use: No Preferred Language: Ugandan Communication Ability: Effective Worm Sorter Required: No Beliefs That Will Affect Care: None Current Living Situation: Alone Current Living Situation Comment: house, alone Other Information That Helps Us Care for You: No Feels Safe at Home: Yes Safety Concerns: Feels Safe At This Time Physical Exam Physical Exam: General: Patient is awake, alert, in no acute distress. Resting comfortably in bed. She is afebrile, she is hypertensive at 162/93 Musculoskeletal: Left shoulder: - Skin about the left shoulder is clean, dry, intact. There is no erythema, warmth, wounds, lacerations, or abrasions. - Patient is minimally tender to palpati on over the anterior, posterior, lateral aspects of the left shoulder. She is nontender over the AC joint. - Patient demonstrates active forward fl exion to approximately 100 degrees, external rotation 30 degrees, internal rotation to the abdomen. She has mild pain with these motions. - Passively I can forward flex her to ab out 120 degrees before she is limited by pain - She has positive Shi Bharat, posi tisavannah Neer's - Negative speeds - Empty can testing 4/5 strength with pa in - Internal and external rotation strengt h 4/5 - Elbow flexion and extension strength 5 /5 - Finger abduction strength 5/5 -Wrist flexion and extension strength 5/ 5 -Sensation is intact to light touch in t he C5-T1 dermatomes -Radial pulse is 2+ Results & Data Vital Signs (Past 12 Hours) Vital Signs Temp Pulse Pulse Resp BP BP Pulse Ox 03/16/25 08:33 76 18 162/93 H 95 03/16/25 07:27 74 16 152/98 H 97 03/16/25 07:27 03/16/25 06:43 79 20 163/78 H 96 03/16/25 05:13 03/16/25 04:00 78 17 150/78 H 95 03/16/25 02:53 88 16 125/77 97 03/16/25 01:47 94 H 03/16/25 01:42 03/16/25 01:34 36.6 C 97 H 21 173/82 H 95 Pulse Ox O2 Del Method O2 Del Method 03/16/25 08:33 Room Air 03/16/25 07:27 Room Air 03/16/25 07:27 97 Room Air 03/16/25 06:43 Room Air 03/16/25 05:13 96 Room Air 03/16/25 04:00 Room Air 03/16/25 02:53 Room Air 03/16/25 01:47 03/16/25 01:42 Room Air 03/16/25 01:34 Room Air Laboratory Results 03/16/25 03/16/25 03/16/25 07:29 04:21 04:20 WBC RBC Hgb POC Hgb Hct POC Hct MCV MCH MCHC RDW Std Deviation RDW Coeff of Tae Plt Count MPV Immature Gran % (Auto) Neut % (Auto) Lymph % (Auto) Doddridge % (Auto) Eos % (Auto) Baso % (Auto) Neut # (Auto) Lymph # (Auto) Doddridge # (Auto) Eos # (Auto) Baso # (Auto) Immature Gran # (Auto) APTT 23 PTT Ratio 0.8 POC Sodium Sodium POC Potassium Potassium POC Chloride Chloride Carbon Dioxide POC Total CO2 Anion Gap POC Anion Gap POC BUN BUN Creatinine POC Creatinine Est Cr Clr Drug Dosing eGFR BUN/Creatinine Ratio Glucose POC Glucose (other) Estimat Average Glucose 134 Hemoglobin A1c 6.3 H Calcium POC Ioniz Calcium Elsie Total Bilirubin AST ALT Alkaline Phosphatase Troponin I High Sens 518.2 H* D 169.8 H* D Total Protein Albumin Globulin Albumin/Globulin Ratio Lipase 03/16/25 03/16/25 03/16/25 03:25 01:55 01:52 WBC 7.03 RBC 4.20 Hgb 10.3 L POC Hgb 11.6 L Hct 33.0 L POC Hct 34 L MCV 78.6 L MCH 24.5 L MCHC 31.2 L RDW Std Deviation 43.4 RDW Coeff of Tae 15.2 H Plt Count 367 MPV 8.7 L Immature Gran % (Auto) 0.1 Neut % (Auto) 60.8 Lymph % (Auto) 25.9 Doddridge % (Auto) 10.0 Eos % (Auto) 2.6 Baso % (Auto) 0.6 Neut # (Auto) 4.28 Lymph # (Auto) 1.82 Doddridge # (Auto) 0.70 H Eos # (Auto) 0.18 Baso # (Auto) 0.04 Immature Gran # (Auto) 0.01 APTT PTT Ratio POC Sodium 138 Sodium 137 POC Potassium 4.0 Potassium 4.1 POC Chloride 105 Chloride 104 Carbon Dioxide 24 POC Total CO2 24 Anion Gap 9 POC Anion Gap 14.0 L POC BUN 21 H BUN 22 Creatinine 1.10 POC Creatinine 1.2 Est Cr Clr Drug Dosing 36.9 eGFR 49.55 BUN/Creatinine Ratio 20.0 Glucose 162 H POC Glucose (other) 164 H Estimat Average Glucose Hemoglobin A1c Calcium 9.8 POC Ioniz Calcium Elsie 1.24 Total Bilirubin 0.4 AST 15 ALT 9 Alkaline Phosphatase 81 Troponin I High Sens 90.4 H* D 24.0 H Total Protein 7.2 Albumin 3.8 Globulin 3.4 Albumin/Globulin Ratio 1.1 Lipase 19 Diagnostic Findings Chest CTA 03/16/25 01:42 EXAM: CT angio chest PE protocol CLINICAL HISTORY: Chest Pain, eval for PE. TECHNIQUE: Contiguous axial images were obtained from the neck base through the upper abdomen following intravenous administration of iodinated contrast material. Angiographic images were processed, and 3D MIP images were acquired for interpretation. If IV contrast material had not been administered, the likelihood of detecting abnormalities relevant to the patient's condition would have been substantially decreased. Coronal and sagittal 3D MIPs were likewise performed and indicated to increase the sensitivity of detecting diffuse clinically relevant pathology. The CT scan was performed according to ALARA (as low as reasonably achievable). 118 cc of Optiray 320 was administered. COMPARISON: None. FINDINGS: Adequate contrast bolus was achieved without evidence of pulmonary embolism. Cardiomegaly is present with a dilated main pulmonary trunk measuring 34 mm in caliber. Mosaic attenuation is noted in both lungs. Bilateral mild basal atelectasis is present. The central airways are patent. There is no pleural effusion. No pericardial effusion is identified. The thyroid is unremarkable. No mediastinal, hilar, or axillary lymphadenopathy is noted. No suspicious lytic or sclerotic osseous lesions are identified. Approximately 52 x38mm soft tissue density lesion with peripheral calcifications and involvement of underlying chest muscles is seen in right breast. 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 IMPRESSION: 1. No evidence of pulmonary embolism. 2. Cardiomegaly is present with a dilated main pulmonary trunk measuring 34 mm in caliber, suggestive of pulmonary hypertension. Advised echocardiogram correlation. 3. Mosaic attenuation in both lungs, likely due to expiratory scan. Electronically signed by Adam Unger 03-16-2025 02:54 AM Shoulder X-Ray 03/16/25 01:42 EXAM: XR shoulder LT min 2V routine CLINICAL HISTORY: pain TECHNIQUE: Radiograph of the left shoulder was acquired. COMPARISON: None. FINDINGS: Multiple osteophytes arise from the head of the humerus with decreased glenohumeral joint space. There is no evidence of acute fracture or dislocation. The acromioclavicular joint space is preserved. The adjacent soft tissues appear unremarkable, with no evidence of joint effusion. IMPRESSION: 1. No acute osseous abnormality. 2. Degenerative changes in the form of multiple osteophytes arising from the head of the humerus with decreased glenohumeral joint space. Electronically signed by Adam Unger 03-16-2025 03:54 AM I personally reviewed and interpreted AP, Grashey, scapular Y x-ray views of the left shoulder obtained 03/16/2025. There is no acute fracture or dislocation. There is severe glenohumeral joint osteoarthritis with multiple osteophytes, flattening of the humeral head, and high riding of the humeral head. This is consistent with rotator cuff arthropathy. (1) Left shoulder pain Chronicity: chronic Qualified Code(s): M25.512 - Pain in left shoulder; G89.29 - Other chronic pain
[2025-03-16] MEDS: HEPARIN 25000 UNIT/500 ML D5W 25,000 UNITS/500 ML BAG IV SCH (10:51)
[2025-03-16] MEDS: Heparin IV Adult Wt-Based Low-Dose *NO* INITIAL Bolus Protocol IV STA (10:52)
--- NOTE | 2025-03-16 11:08 | Cardiology Consultation ---
<Statement entered by Caitlin Pollack, - 03/16/25 14:14> I have reviewed the advanced practitioner's documentation and agree with the plan of care. I accept the responsibility for the associated risk. 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 She woke up in middle of the night with chest pain radaiting down left arm; BP was elevated on presentation-she has been struggling with elevated BP over the past month. She ruled in for NSTEMI echo today no wall motion abnormality and EF preserved Recommend continue IV heparin continue home cardiac medications; but probably need to consider increasing imdur to 60mg daily vs norvasc 5mg dailyupon discharge recommend cardiac catheterization on tuesday can continue to trend topronins until they peak Date of Consultation March 16, 2025 Assessment & Plan (1) Coronary artery disease: (2) Hypertension: (3) Left shoulder pain: (4) Atypical chest pain: (5) Elevated troponin: Plan - Heart rate and blood pressure currently well-controlled - She was hypertensive on presentation but in conversation with her primary hard tile setter apprentice appears to have been ongoing issue over the last month with readings in the 170-190 range over 100s in their office - She does have stents to the LAD, cardiac cath completed at [facility] reported 80% LAD lesion at the origin literally a year ago that did not, but what what LCx had a 50% lesion, RCA had BULK STATION OPERATOR, reportedly did attempt to cannulate utilized the RCA without success. - She takes high-dose Entresto along with Crestor, 30 of Imdur and Bisoprolol 5 twice daily in addition to Plavix - Continue IV heparin infusion for a total of 48 hours - Would recommend repeat cardiac catheterization on Tuesday given her known history of coronary disease as her presenting symptoms are somewhat concerning - If she has recurrent chest pain or acute ECG changes I would recommend acute cardiac cath at that point but can continue to monitor on telemetry for now -continue current medications Case discussed with Dr. Pollack. Please see attestation for additional recommendations. LIZETH Wyman Department of Cardiology, [facility] This chart was completed in part utilizing Speech Voice Recognition Software. Grammatical errors, random word insertions, pronoun errors, and incomplete sentences are an occasional consequence of this system due to software limitations, ambient noise, and hardware issues. Any formal questions or concerns about the content, text, or information contained within the body of this dictation should be directly addressed to the provider for clarification. History of Present Illness Reason for Consultation: HTN Urgency, Elevated Troponin Requesting Physician: Hospitalist Attending Physician: Lenora Momin MD History of Present Illness 84-year-old female seen in consultation today in regards to elevated troponin and left arm pain. Presented to the emergency room overnight after awakening with severe left shoulder pain that radiated into her elbow. She follows with a hard tile setter apprentice at [facility] in [place] and is only in town for a local conference. She was admitted with a GI bleed and anemia at [facility] [place] last month. She does have coronary artery disease and previously received a stent in 2023, at that time she was experiencing substernal chest pain. Allergies Allergy/AdvReac Type Severity Reaction Status Date / Time Gadolinium-Containing Allergy Anaphylaxis Verified 03/16/25 01:46 Contrast Medi Home Medications Medication Instructions Recorded Confirmed Type bisoprolol fumarate 5 mg tablet 5 mg PO BID 03/16/25 03/16/25 History cholecalciferol (vitamin D3) 100 1,000 unit PO DAILY 03/16/25 03/16/25 History mcg (4,000 unit) capsule clopidogrel 75 mg tablet (Plavix) 75 mg PO DAILY 03/16/25 03/16/25 History empagliflozin 10 mg tablet 10 mg PO DAILY 03/16/25 03/16/25 History (Jardiance) isosorbide mononitrate 30 mg 30 mg PO DAILY 03/16/25 03/16/25 History tablet,extended release 24 hr rosuvastatin 20 mg tablet 20 mg PO HS 03/16/25 03/16/25 History sacubitril 97 mg-valsartan 103 mg 1 tab PO BID 03/16/25 03/16/25 History tablet (Entresto) Patient History Medical History History of breast cancer Social History Smoking Status: Never smoker Hx Alcohol Use: Yes Alcohol type: beer Hx Substance Use: No Preferred Language: Malawian Communication Ability: Effective Candlemaking Laborer Required: No Beliefs That Will Affect Care: None Current Living Situation: Alone Current Living Situation Comment: house, alone Other Information That Helps Us Care for You: No Feels Safe at Home: Yes Safety Concerns: Feels Safe At This Time Review of Systems Constitutional: no fever, no chills, no body aches and no weight gain Respiratory: no cough and no dyspnea Cardiovascular: + radiating jaw, neck or arm pain Gastrointestinal: no abdominal pain, no nausea and no vomiting Musculoskeletal: left shoulder pain Physical Exam Constitutional: WD/WN, vitals as above well developed and well nourished; no acute distress Eyes: PERRL, conjunctivae normal, anicteric sclerae Neck: trachea midline, no thyromegaly Respiratory: normal respiratory effort, lungs clear to auscultation Cardiovascular: Rate/Rhythm: regular rate and regular rhythm Vessels: normal peripheral pulses Gastrointestinal (Abdomen): normal bowel sounds, soft, nontender, no hepatosplenomegaly Musculoskeletal: no cyanosis or clubbing, extremities motor strength 5/5 Skin: no rashes, warm and dry Psychiatric: A+Ox3, euthymic affect Results & Data Vital Signs (Past 12 Hours) Vital Signs Temp Pulse Pulse Resp BP BP Pulse Ox 03/16/25 08:33 76 18 162/93 H 95 03/16/25 07:27 74 16 152/98 H 97 03/16/25 07:27 03/16/25 06:43 79 20 163/78 H 96 03/16/25 05:13 03/16/25 04:00 78 17 150/78 H 95 03/16/25 02:53 88 16 125/77 97 03/16/25 01:47 94 H 03/16/25 01:42 03/16/25 01:34 36.6 C 97 H 21 173/82 H 95 Pulse Ox O2 Del Method O2 Del Method 03/16/25 08:33 Room Air 03/16/25 07:27 Room Air 03/16/25 07:27 97 Room Air 03/16/25 06:43 Room Air 03/16/25 05:13 96 Room Air 03/16/25 04:00 Room Air 03/16/25 02:53 Room Air 03/16/25 01:47 03/16/25 01:42 Room Air 03/16/25 01:34 Room Air Laboratory Results Cardiac Enzymes 03/16/25 03/16/25 03/16/25 Range/Units 01:52 03:25 04:20 AST 15 (13-39) U/L Troponin I High Sens 24.0 H 90.4 H* D 169.8 H* D (0-14) pg/ml 03/16/25 Range/Units 07:29 AST (13-39) U/L Troponin I High Sens 518.2 H* D (0-14) pg/ml Coagulation 03/16/25 Range/Units 04:21 APTT 23 (21-31) Seconds CBC 03/16/25 Range/Units 01:52 WBC 7.03 (4.8-10.8) K/ul RBC 4.20 (4.20-5.40) M/uL Hgb 10.3 L (12.0-16.0) g/dl Hct 33.0 L (37.0-47.0) % Plt Count 367 (130-400) K/uL Neut # (Auto) 4.28 (1.40-6.50) K/uL Lymph # (Auto) 1.82 (1.20-3.40) K/uL Winston # (Auto) 0.70 H (0.11-0.59) K/uL Eos # (Auto) 0.18 (0.00-0.50) K/uL Baso # (Auto) 0.04 (0.00-0.20) K/uL Comprehensive Metabolic Panel 03/16/25 Range/Units 01:52 Sodium 137 (136-145) mmol/L Potassium 4.1 (3.5-5.1) mmol/L Chloride 104 (98-107) mmol/L Carbon Dioxide 24 (21-32) mmol/L BUN 22 (6-23) mg/dl Creatinine 1.10 (0.6-1.2) mg/dl Glucose 162 H (70-99(Fasting)) mg/dl Calcium 9.8 (8.6-10.3) mg/dl AST 15 (13-39) U/L ALT 9 (7-52) U/L Alkaline Phosphatase 81 (34-104) U/L Total Protein 7.2 (6.0-8.3) gm/dl Albumin 3.8 (3.4-5.0) gm/dl Intake and Output 03/15/25 03/16/25 03/16/25 22:59 06:59 14:59 Other: Weight 78.4 kg Weight Measurement [facility] Medications Administered Current Inpatient Medications Acetaminophen (Acetaminophen 325 Mg Tab) 650 mg PO QID PRN PRN Reason: pain/fever Stop: 04/15/25 04:14 Bisoprolol Fumarate (Bisoprolol Fumarate 5 Mg Tab) 5 mg PO BID [facility] Stop: 04/15/25 05:24 Last Admin: 03/16/25 06:36 Dose: 5 mg Clopidogrel Bisulfate (Clopidogrel Bisulfate 75 Mg Tab) 75 mg PO DAILY [facility] Stop: 04/15/25 08:59 Last Admin: 03/16/25 08:42 Dose: 75 mg Empagliflozin (Empagliflozin 10 Mg Tab) 10 mg PO DAILY [facility] Stop: 04/15/25 08:59 Last Admin: 03/16/25 08:42 Dose: 10 mg Sodium Chloride (Nss) 1,000 mls @ 50 mls/hr IV .Q20H ONE Stop: 03/17/25 00:13 Last Admin: 03/16/25 06:35 Dose: 50 mls/hr Promethazine HCl (Phenergan) 6.25 mg in 50.25 mls @ 201 mls/hr IV Q6H PRN PRN Reason: Nausea And Vomiting Stop: 04/15/25 04:14 Heparin Sodium/Dextrose (Heparin 04528 Unit/500 Ml D5w) 25,000 units in 500 mls @ 15 mls/hr IV .Q24H [facility]; Protocol Stop: 04/15/25 09:59 Last Admin: 03/16/25 10:51 Dose: 750 units/hr, 15 mls/hr Isosorbide Mononitrate (Isosorbide Winston Extended Rel 30 Mg Tabcr) 30 mg PO DAILY VINAY Stop: 04/15/25 08:59 Last Admin: 03/16/25 08:43 Dose: 30 mg Morphine Sulfate (Morphine Sulfate 2 Mg/Ml Carp) 2 mg IV Q3H PRN PRN Reason: Pain Stop: 03/30/25 04:14 Nitroglycerin (Nitroglycerin Sl 0.4 Mg/Tab Tab) 0.4 mg SL Q5M PRN PRN Reason: Chest Pain Stop: 04/15/25 06:29 Oxycodone HCl (Oxycodone Hcl Ir 5 Mg Tab (Immediate Release)) 5 mg PO Q4H PRN PRN Reason: Pain Stop: 03/30/25 04:14 Rosuvastatin Calcium (Rosuvastatin Calcium 20 Mg Tab) 20 mg PO HS VINAY Stop: 04/15/25 20:59 Sacubitril/Valsartan (Valsartan/Sacubitril 103/97mg Tab) 1 tab PO BID VINAY Stop: 04/15/25 08:59 Last Admin: 03/16/25 08:44 Dose: 1 tab PG Care Time/CCT Total # of Minutes Spent Total Time Spent with Patient: Total time spent is greater than 50% in coordination of care (as documented) at patient's floor/unit and/or counseling patient: Coding Level of Care Code 44475 IN/OBS CONSULT LVL 5,80M Medical Decision Making High Complexity Diagnoses Coronary artery disease I25.10 Hypertension I10 Chronic left shoulder pain M25.512; G89.29 Chronicity: chronic Atypical chest pain R07.89 Elevated troponin R79.89 (3) Left shoulder pain Chronicity: chronic Qualified Code(s): M25.512 - Pain in left shoulder; G89.29 - Other chronic pain
--- NOTE | 2025-03-16 11:53 | Electrocardiogram Report ---
Test Reason : Blood Pressure : */* mmHG Vent. Rate : 88 BPM Atrial Rate : 88 BPM P-R Int : 198 ms QRS Dur : 70 ms QT Int : 380 ms P-R-T Axes : -4 -13 -51 degrees QTcB Int : 459 ms Normal sinus rhythm Low voltage QRS Inferior infarct (cited on or before 16-Mar-2025) Cannot rule out Anterior infarct (cited on or before 16-Mar-2025) Abnormal ECG When compared with ECG of 16-Mar-2025 01:44, (unconfirmed) Questionable change in initial forces of Anterior leads Confirmed by Rojelio Hoyos ([id number]) on 03/16/2025 11:53:33 AM Referred By: REFERRED SELF Confirmed By: Rojelio Hoyos
--- NOTE | 2025-03-16 11:53 | Electrocardiogram Report ---
Test Reason : Blood Pressure : */* mmHG Vent. Rate : 93 BPM Atrial Rate : 93 BPM P-R Int : 200 ms QRS Dur : 74 ms QT Int : 368 ms P-R-T Axes : -19 -12 -32 degrees QTcB Int : 457 ms Normal sinus rhythm Inferior infarct , age undetermined Cannot rule out Anterior infarct , age undetermined Abnormal ECG No previous ECGs available Confirmed by Rojelio Hoyos ([id number]) on 03/16/2025 11:53:21 AM Referred By: REFERRED SELF Confirmed By: Rojelio Hoyos
--- NOTE | 2025-03-16 12:28 | XCELERA ---
[id number] [id number]
[2025-03-16 17:29] LABS: ANTI-Xa, UFH(UnfractionatedHep 0.58 IU/ml (0.3-0.7)
[2025-03-16] MEDS: ROSUVASTATIN CALCIUM 20 MG TAB PO SCH (20:02)
[2025-03-17 06:15] LABS: Hematocrit (blood only) 30.0 % (37.0-47.0); Hemoglobin 8.9 g/dl (12.0-16.0); Immature Granulocytes # (auto) 0.01 K/uL (0.01-0.20); Immature Granulocytes % (auto) 0.2 %; Mean Corpuscular Hemoglobin 23.1 pg (25.0-34.0); Mean Corpuscular Volume 77.9 fL (80.0-100.0); Platelet Count 329 K/uL (130-400); RDW Standard Deviation 43.5 fL (36.4-46.3); Red Blood Count 3.85 M/uL (4.20-5.40); White Blood Count 5.93 K/ul (4.8-10.8)
[2025-03-17 06:31] LABS: Anion Gap 6.0 (3-11); Blood Urea Nitrogen 19.0 mg/dl (6-23); Calcium 8.9 mg/dl (8.6-10.3); Carbon Dioxide 22.0 mmol/L (21-32); Chloride 109.0 mmol/L (98-107); Creatinine Clr Calc Pharmacy 47.2 ml/min; Glucose 107.0 mg/dl (70-99(Fasting)); Potassium 3.8 mmol/L (3.5-5.1); Sodium 137.0 mmol/L (136-145)
[2025-03-17 07:09] LABS: ANTI-Xa, UFH(UnfractionatedHep 0.13 IU/ml (0.3-0.7)
[2025-03-17] MEDS ORDERED: HEPARIN SOD (PORCINE) 1000 UNIT/ML IV ONE (07:14)
[2025-03-17] MEDS: HEPARIN SOD (PORCINE) 1000 UNIT/ML IV ONE (08:02)
--- NOTE | 2025-03-17 11:15 | Cardiology Progress Note ---
<Statement entered by Caitlin Pollack, - 03/17/25 13:24> I have reviewed the advanced practitioner's documentation and agree with the plan of care. I accept the responsibility for the associated risk. pt seen in cardiology f/u due to NSTEMI her BP is better after morning medications; she is not having any more CP she might benefit from switching imdur to afternoon/midday as well as possibly might need norvasc 5mg at this time as well continue bystolic and entresto NPO after midnight for a cath continue IV heparin Date of Service March 17, 2025 Assessment & Plan (1) Coronary artery disease: (2) Hypertension: (3) Left shoulder pain: (4) Atypical chest pain: (5) Elevated troponin: Plan - Heart rate currently well-controlled - BP running above goal this AM but better after her AM meds - Hx stents to the LAD, cardiac cath completed at [facility] 03/2024: reported 80% LAD lesion at the origin literally a year ago that did not, but what what LCx had a 50% lesion, RCA had REGIONAL DIRECTOR OF ADMISSIONS, reportedly did attempt to cannulate utilized the RCA without success. - continue Entresto , Crestor, Imdur, Bisoprolol, and Plavix - Continue IV heparin infusion for a total of 48 hours - plan for cardiac cath tomorrow - NPO after midnight - has remained symptom free Case discussed with Dr. Pollack. Please see attestation for additional recommendations. LIZETH Wyman Department of Cardiology, [facility] This chart was completed in part utilizing Speech Voice Recognition Software. Grammatical errors, random word insertions, pronoun errors, and incomplete sentences are an occasional consequence of this system due to software limita tions, ambient noise, and hardware issues. Any formal questions or concerns about the content, text, or information contained within the body of this dictation should be directly addressed to the provider for clarification. Admission and Anticipated Discharge Date Admission Date: March 16, 2025 Subjective 84 year old female seen in cardiology follow up in regard to HTN urgency, atypocal chest pain, NSTEMI. Overall feeling well. No recurrent shoulder/chest pain. Review of Systems Review of Systems: All systems reviewed & are unremarkable except as noted in Subjective Musculoskeletal: left shoulder pain Physical Exam Constitutional: WD/WN, vitals as above well developed and well nourished; no acute distress Eyes: PERRL, conjunctivae normal, anicteric sclerae Neck: trachea midline, no thyromegaly Respiratory: normal respiratory effort, lungs clear to auscultation Cardiovascular: Rate/Rhythm: regular rate and regular rhythm Vessels: normal peripheral pulses Gastrointestinal (Abdomen): normal bowel sounds, soft, nontender, no hepatosplenomegaly Musculoskeletal: no cyanosis or clubbing, extremities motor strength 5/5 Skin: no rashes, warm and dry Psychiatric: A+Ox3, euthymic affect Results & Data Vital Signs (Past 12 Hours) Vital Signs Temp Pulse Pulse Resp BP Pulse Ox Pulse Ox 03/17/25 07:45 03/17/25 07:12 36.6 C 66 23 157/83 H 96 03/17/25 07:00 96 03/17/25 05:42 58 L 03/17/25 03:11 36.5 C 65 18 151/69 H 94 O2 Del Method O2 Del Method 03/17/25 07:45 Room Air 03/17/25 07:12 Room Air 03/17/25 07:00 Room Air 03/17/25 05:42 03/17/25 03:11 Room Air PG Care Time/CCT Total # of Minutes Spent Total Time Spent with Patient: Total time spent is greater than 50% in coordination of care (as documented) at patient's floor/unit and/or counseling patient: Coding Level of Care Code 29668 SUB INP/OBS CARE 3/50MIN Diagnoses Coronary artery disease I25.10 Hypertension I10 Chronic left shoulder pain M25.512; G89.29 Chronicity: chronic Atypical chest pain R07.89 Elevated troponin R79.89 (3) Left shoulder pain Chronicity: chronic Qualified Code(s): M25.512 - Pain in left shoulder; G89.29 - Other chronic pain
--- NOTE | 2025-03-17 11:53 | Hospitalist Progress Note ---
Date of Service March 17, 2025 Assessment & Plan (1) Left shoulder pain: (2) Elevated troponin: (3) Prediabetes: (4) CHF (congestive heart failure): (5) Coronary artery disease: (6) Hypertension: (7) Hyperlipidemia: (8) History of breast cancer: (9) Chronic anemia: Plan 84 year old female resident of [facility] in town for local convention with PMH significant for CHF, CAD s/p stent (2023), hypertension, hyperlipidemia, history of right breast cancer s/p surgery and radiation, chronic anemia (baseline Hgb 10) who presented to the ED on 03/16/2025 with left shoulder pain. Left shoulder pain, acute on chronic Patient reports severe acute left shoulder pain that woke her from sleep-> currently resolved X-ray revealed degenerative changes with decreased glenohumeral joint space Ortho consulted and recommending no acute intervention Supportive care with pain medicine and ice PRN now back to baseline per pt. Elevated troponin CAD s/p stent NSTEMI Troponin uptrending 90-> 169-> 518 - 798- 619 Trend until peak CTA without evidence of PE, suggestive of pulmonary hypertension EKG reveals NSR with possible ST elevation in V3-V6, no baseline EKG to compare to Echo revealed LVEF 55-60% with no wall motion abnormality, non-dilated chambers, no significant valvular pathology Cardiology consulted and planning for cath on Tuesday as long as no chest pain or ECG changes Continue home plavix Heparin drip for 48 hours CHF Hypertension Hyperlipidemia Follows with [facility] in [place] Notes history of hard to control hypertension Continue Entresto, bisoprolol, imdur, rosuvastatin, jardiance Prediabetes Hyperglycemia 162 on admission A1C 6.3% Discussed with patient and advised follow up with PCP History of breast cancer s/p surgery/radiation Chest CTA revealed soft tissue density lesion with peripheral calcifications and involvement of underlying chest muscles in right breast Follow up with PCP Chronic anemia Hgb at baseline Monitor CBC DVT Prophylaxis: SQ Lovenox Code Status: FULL CODE PCP: Cedrick Gregorio ([place], [place]) Disposition: awaiting cardiac cath results Tuesday Admission and Anticipated Discharge Date Admission Date: March 16, 2025 Subjective Patient was seen and examined at bedside. Patient was sitting up in chair, on room air, NAD, resting comfortably. Patient denies further left arm pain, denies any other review of symptoms. Patient's daughter at bedside was also updated on plan of care. Physical Exam Physical Exam: General/Psych: overweight, sitting up in chair, NAD, conversing easily Head: normocephalic, atraumatic Eyes: normal inspection, PERRL, conjunctivae pink ENT: external ear and nose normal, oropharynx normal Neck: normal visual inspection, trachea midline Respiratory: normal respiratory effort, lungs clear to auscultation, no wheeze/rales/rhonchi, no accessory muscle use Cardiovascular: regular rate and rhythm, no murmur/rub/gallop Extremities: no cyanosis or clubbing, normal peripheral pulses, no BLE edema Abdomen/GI: normal bowel sounds, soft, nontender Neurologic/MSK: A+Ox3, motor strength 5/5, moves all extremities Skin: no rashes, normal color, warm and dry Results & Data Results & Data Vital Signs (Past 12 Hours) Vital Signs Temp Pulse Pulse Resp BP Pulse Ox Pulse Ox 03/17/25 11:35 36.7 C 65 16 118/72 96 03/17/25 07:45 03/17/25 07:12 36.6 C 66 23 157/83 H 96 03/17/25 07:00 96 03/17/25 05:42 58 L 03/17/25 03:11 36.5 C 65 18 151/69 H 94 O2 Del Method O2 Del Method 03/17/25 11:35 Room Air 03/17/25 07:45 Room Air 03/17/25 07:12 Room Air 03/17/25 07:00 Room Air 03/17/25 05:42 03/17/25 03:11 Room Air (1) Left shoulder pain Chronicity: chronic Qualified Code(s): M25.512 - Pain in left shoulder; G89.29 - Other chronic pain
[2025-03-17 14:29] LABS: ANTI-Xa, UFH(UnfractionatedHep 0.44 IU/ml (0.3-0.7)
[2025-03-18 06:40] LABS: Hematocrit (blood only) 32.8 % (37.0-47.0); Hemoglobin 9.9 g/dl (12.0-16.0); Mean Corpuscular Hemoglobin 23.3 pg (25.0-34.0); Mean Corpuscular Volume 77.4 fL (80.0-100.0); Platelet Count 316 K/uL (130-400); RDW Standard Deviation 43.6 fL (36.4-46.3); Red Blood Count 4.24 M/uL (4.20-5.40); White Blood Count 5.88 K/ul (4.8-10.8)
[2025-03-18 06:56] LABS: Anion Gap 7.0 (3-11); Blood Urea Nitrogen 20.0 mg/dl (6-23); Calcium 9.3 mg/dl (8.6-10.3); Carbon Dioxide 24.0 mmol/L (21-32); Chloride 107.0 mmol/L (98-107); Creatinine Clr Calc Pharmacy 45.9 ml/min; Glucose 97.0 mg/dl (70-99(Fasting)); Magnesium 2.3 mg/dl (1.7-2.4); Potassium 4.0 mmol/L (3.5-5.1); Sodium 138.0 mmol/L (136-145)
[2025-03-18 07:17] LABS: ANTI-Xa, UFH(UnfractionatedHep 0.41 IU/ml (0.3-0.7)
[2025-03-18] MEDS: [UNRECOGNIZED DRUG - REMARK] ONE (09:49)
--- NOTE | 2025-03-18 11:21 | Pre Anesthesia Assessment ---
Date of Service March 18, 2025 Pre Sedation Assessment Vital Signs Temp Pulse Pulse Resp BP Pulse Ox Pulse Ox 03/18/25 10:24 67 18 146/93 H 97 03/18/25 09:00 03/18/25 07:46 97.5 F L 65 18 152/85 H 95 03/18/25 07:00 96 03/18/25 03:20 97.9 F 66 18 153/80 H 94 03/17/25 22:05 97.9 F 63 18 151/83 H 95 03/17/25 21:45 66 03/17/25 19:26 97.9 F 69 18 145/79 H 95 03/17/25 16:13 97.9 F 71 22 148/79 H 95 03/17/25 13:09 70 03/17/25 11:35 98.1 F 65 16 118/72 96 O2 Del Method O2 Del Method 03/18/25 10:24 Room Air 03/18/25 09:00 Room Air 03/18/25 07:46 Room Air 03/18/25 07:00 Room Air 03/18/25 03:20 Room Air 03/17/25 22:05 Room Air 03/17/25 21:45 03/17/25 19:26 Room Air 03/17/25 16:13 Room Air 03/17/25 13:09 03/17/25 11:35 Room Air Cardiovascular + regular rate Respiratory + respiratory effort normal Pre-Sedation Airway Assessment Smoking Status: Never smoker Hx Sleep Apnea: No Short, Thick Neck: No Thyromental Distance: > or= 3.5 Finger Breadths Oral Cavity: + WNL Mallampati Class: III ASA: ASA3 NPO Status Date of Last Intake of Fluids: 03/18/25 Time of Last Intake of Fluids: 07:00 Last Oral Intake of Fluids Comment: sip with meds Date of Last Intake of Solid Food: 03/17/25 Time of Last Intake of Solid Foods: 20:00 Procedure Planning Contraindications for Sedation: none Current Medications Reviewed: Yes Notes The planned sedation has been discussed with the patient. Informed Consent was obtained. I have identified the patient, determined the appropriateness of sedation and have assessed the patient immediately prior to the procedure. All medicine(s) and interventions are by my order.
[2025-03-18] MEDS: niCARdipine 2,000 MCG/20 ML SYR ONE (12:12)
[2025-03-18] MEDS: IODIXANOL (VISIPAQUE) 320 MG/ML 100ML IV ONE (12:12)
[2025-03-18] MEDS: NITROGLYCERIN/D5W 100MCG/ML 20ML SYR ONE (12:12)
[2025-03-18] MEDS: HEPARIN (PORCINE) 1000 UNIT/ML 10 ML (CATH LAB USE ONLY) ONE (12:55)
[2025-03-18] MEDS: MIDAZOLAM HCL 1 MG/ML 2ML VIAL ONE (12:55)
[2025-03-18] MEDS: OPTIRAY 350 ONE (12:56)
--- NOTE | 2025-03-18 12:58 | Post Anesthesia Assessment ---
Date of Service March 18, 2025 Post Sedation Assessment Vital Signs Temp Pulse Pulse Resp BP Pulse Ox Pulse Ox 03/18/25 10:24 67 18 146/93 H 97 03/18/25 09:00 03/18/25 07:46 97.5 F L 65 18 152/85 H 95 03/18/25 07:00 96 03/18/25 03:20 97.9 F 66 18 153/80 H 94 03/17/25 22:05 97.9 F 63 18 151/83 H 95 03/17/25 21:45 66 03/17/25 19:26 97.9 F 69 18 145/79 H 95 03/17/25 16:13 97.9 F 71 22 148/79 H 95 03/17/25 13:09 70 O2 Del Method O2 Del Method 03/18/25 10:24 Room Air 03/18/25 09:00 Room Air 03/18/25 07:46 Room Air 03/18/25 07:00 Room Air 03/18/25 03:20 Room Air 03/17/25 22:05 Room Air 03/17/25 21:45 03/17/25 19:26 Room Air 03/17/25 16:13 Room Air 03/17/25 13:09 Recovery Score Activity: Moves 4 extremities Respiration: Deep Breath/Cough Circulation: +/-20% PreAnes Value Consciousness: Fully Awake Oxygen Saturation: O2 needed for >90% Discharge Sedation Level of Care: Fast Track Phase II
--- NOTE | 2025-03-18 14:46 | Hospitalist Progress Note ---
Date of Service March 18, 2025 Assessment & Plan (1) Left shoulder pain: (2) Elevated troponin: (3) Prediabetes: (4) CHF (congestive heart failure): (5) Coronary artery disease: (6) Hypertension: (7) Hyperlipidemia: (8) History of breast cancer: (9) Chronic anemia: Plan Patient is an 84-year-old female with PMHx significant for CAD with LAD 80% s/p mid PCI on 03/19/2024 with residual ATHLETIC TRAINER of RCA with collaterals and Cx/OM 50%, CHF, HTN, HLD, history of right breast cancer s/p surgery and radiation and chronic anemia who presented to the ED on 03/16/2025 with left shoulder pain. Resident of [facility]. 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 Patient with history of chronic intermittent shoulder pain, has been ongoing for at least 5 years. Left shoulder XR revealed severe osteoarthritis with rotator cuff arthropathy. Orthopedics evaluated. -Chronic problem, no acute surgical intervention needed at this time. -Recommend outpatient orthopedic follow-up once back in [place]. Feel this may have been referred pain ISO below. No new injury or trauma to left arm/shoulder. Elevated troponin, NSTEMI History of CAD s/p mid LAD stent placement in March 2024 Troponin trend: 24 -> 90.4 -> 169.8 -> 518.2 -> 798.9 (peak) -> 619.9 -> 231.6 as of earlier today. EKG revealed NSR with questionable change in initial forces of anterior leads, no baseline EKG to compare to. Chest CTA without evidence of PE, dilated main pulmonary trunk suggestive of pulmonary HTN. TTE with LVEF = 55-60%, no wall motion abnormality, non-dilated cardiac chambers, no significant valvular pathology. S/p cardiac cath this afternoon. Spoke with Dr. Segovia via TT. 80% heavily calcified prox LAD stenosis. Tried to evaluate it further with intravascular ultrasound and FFR but neither catheter would pass. Think this is primarily chronic but will plan to keep on IV heparin overnight. Nothing critical from a CAD standpoint. If stable tomorrow, can go back to [place] with medical management. Update provided by Dr. Segovia to patient's primary rn pool, Dr. Palacios, who will arrange for follow-up to talk about PCI with atherectomy vs CABG. Continue Plavix, Imdur, statin and Jardiance. Labile HTN BP well-controlled s/p cardiac cath. Patient notes history of hard to control HTN. Follows with Dr. Charlie Palacios (interventional cardiology) in [place]. Continue Entresto and bisoprolol with hold parameters. Prediabetes Hyperglycemia noted on admission, hemoglobin A1c found to be 6.3%. Discussed with patient and advised further follow-up with PCP. History of right breast cancer s/p surgery and radiation Chest CTA: Approximately 26u68ys soft tissue density lesion with peripheral calcifications and involvement of underlying chest muscles is seen in right breast. Discussed with patient, recommend close follow-up with PCP to arrange further investigation into this. Chronic anemia Hemoglobin remains around baseline, continue to monitor. DVT Prophylaxis: IV heparin as per above Code Status: FULL CODE PCP: Cedrick Gregorio MD [[place]] Disposition: Possible DC tomorrow Patient seen in collaboration with Dr. Momin. Please see addendum. I spent a total of 62 minutes coordinating, documenting, and providing care for this patient excluding time spent in the performance of separately billed services or time spent by another provider/QHP. This included personally reviewing all current laboratories and imaging studies, medical reconciliation, outpatient chart review and discussion with specialists. This chart was completed in part utilizing Speech Voice Recognition Software. Grammatical errors, random word insertions, pronoun errors, and incomplete sentences are an occasional consequence of this system due to software limitations, ambient noise, and hardware issues. Any formal questions or concerns about the content, text, or information contained within the body of this dictation should be directly addressed to the provider for clarification. Admission and Anticipated Discharge Date Admission Date: March 16, 2025 Supervising Physician Co-Signing Physician Notes 84 yo F w/ PMH of CHF, CAD s/p stent (2023), HTN, HLD, right breast cancer s/p Sx and radiation, chronic anemia (Hb around 10) presents to ED w/ co left shoulder pain waking her up from sleep. Pt was worked up in the line of cardiac cause and troponin noted to be uptrending. Left shoulder pain: XR reviewed, has chronic pain but now has acute on chronic nature. Ortho evaled. Mx pain. likely NSTEMI: trop elevated and pt denies chest pain but had left shoulder pain which has gotten better now.s/p cath 03/18 - heavily calcified prox LAD stenosis 80%. cardio on board, plan for heparin gtt overnight. On exam: RA, NAD, no ble edema. rest of the exam as above. total time spent independently: 20 min I have seen and examined the patient and have discussed the case with the provider above. I agree with the assessment and plan as stated. Subjective Patient seen and examined in room 454-2 prior to cardiac catheterization. Denies any further left shoulder/arm pain. Patient's daughter and son-in-law at bedside were updated on plan of care. Review of Systems Review of Systems: At least ten systems reviewed and negative, except as noted in the subjective section. Physical Exam Physical Exam: General/Psych: Elderly F, overweight, sitting up in chair, NAD, conversing easily, family at bedside Head: normocephalic, atraumatic Eyes: normal inspection, PERRL, conjunctivae pink ENT: external ear and nose normal, oropharynx normal Neck: normal visual inspection, trachea midline Respiratory: normal respiratory effort, CTAB, no wheeze/rales/rhonchi, no accessory muscle use Cardiovascular: regular rate and rhythm, no murmur/rub/gallop Extremities: no cyanosis or clubbing, normal peripheral pulses, no BLE edema Abdomen/GI: normal bowel sounds, soft, nontender Neurologic/MSK: A+Ox3, motor strength 5/5, moves all extremities Skin: no rashes, normal color, warm and dry Results & Data Results & Data Vital Signs (Past 12 Hours) Vital Signs Temp Pulse Pulse Resp BP BP Pulse Ox 03/18/25 14:00 75 12 117/70 96 03/18/25 13:45 36.7 C 95 H 14 146/81 H 95 03/18/25 13:30 36.7 C 70 12 127/77 98 03/18/25 13:25 59 L 16 141/105 H 95 03/18/25 13:10 71 16 140/96 96 03/18/25 13:05 75 03/18/25 10:24 67 18 146/93 H 97 03/18/25 09:00 03/18/25 07:46 36.4 C L 65 18 152/85 H 95 03/18/25 07:00 03/18/25 03:20 36.6 C 66 18 153/80 H 94 Pulse Ox O2 Del Method O2 Del Method 03/18/25 14:00 Room Air 03/18/25 13:45 Room Air 03/18/25 13:30 Room Air 03/18/25 13:25 Room Air 03/18/25 13:10 Room Air 03/18/25 13:05 03/18/25 10:24 Room Air 03/18/25 09:00 Room Air 03/18/25 07:46 Room Air 03/18/25 07:00 96 Room Air 03/18/25 03:20 Room Air Laboratory Results Short CBC 03/18/25 Range/Units 06:16 WBC 5.88 (4.8-10.8) K/ul Hgb 9.9 L (12.0-16.0) g/dl Hct 32.8 L (37.0-47.0) % Plt Count 316 (130-400) K/uL BMP 03/18/25 06:16 Sodium 138 Potassium 4.0 Chloride 107 Carbon Dioxide 24 BUN 20 Creatinine 0.87 Glucose 97 Calcium 9.3 (1) Left shoulder pain Chronicity: chronic Qualified Code(s): M25.512 - Pain in left shoulder; G89.29 - Other chronic pain
[2025-03-18] MEDS: HEPARIN 25000 UNIT/500 ML D5W 25,000 UNITS/500 ML BAG IV SCH (16:18)
--- NOTE | 2025-03-18 17:09 | Cardiac Catheterization ---
[facility] Data: Edge Setter Cardiac Status Clinical evaluation leading to the procedure CAD Presenation: Non STEMI Diagnostic Physicians Name: Puneet Segovia MD Closure Device Recommendations: Medical Therapy and/or Counseling Cardiac Cath Procedure Full Procedure Date March 18, 2025 Pre-Procedure Diagnosis Pre-Procedure Diagnosis: Non STEMI AUC Score AUC Score: 8 Post-Procedure Diagnosis Post-Procedure Diagnosis: Severe CAD and Normal Intracardiac Pressures Procedure(s) Performed Procedure(s) Performed: Coronary Angiography, Left Heart Cath and IVUS Leaf Tier Puneet Segovia MD Network Operations Center Technician(s) Radha Estimated Blood Loss Estimated Blood Loss: 20 Medication(s) Medication(s): Clopidogrel, Fentanyl, Heparin, Lidocaine 1%, Nicardipine, Nitroglycerin and Versed Summary of Findings Indication: NSTEMI. History of CAD post prior stent to mid LAD 03/2024. 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 LAD -calcified, medium caliber, hazy 80% earlymid stenosis just at takeoff of D1/first septal. Mid LAD stent patent. Remainder of LAD large-caliber without significant disease and wraps around apex. Bifurcating D1 without significant disease. D2 without significant disease. Circumflex -small to medium caliber, 30% mid segment stenosis. Small OM1 without significant disease. Tortuous OM 2 without significant disease. RCA -dominant, heavily calcified, diffuse mild mid segment disease prior to chronic latemid subtotal occlusion with TERESA I flow in distal vessel. Brisk [id number] collaterals retrofills PDA/PLBs. LVEDP -15 IVUS of LAD Attempt made to further evaluate hazy earlymid LAD disease with question of possible acute thrombotic lesion BMW wire navigated across proximal/mid LAD disease Unable to pass IVUS catheter across earlymid stenosis There was some question whether wire briefly traveled extraluminal across stenotic segment and then back into true before stented segment LAD rewired with commercial pilot 50 wire Still unable to pass IVUS catheter. Also unable to pass ACIST FFR catheter across stenosis Stenosis felt to be chronic and heavily calcified. Wire and catheters removed. No apparent complications on post angiography. Arterial Closure: TR band Summary: 1. Multivessel coronary artery disease - 80% calcified earlymid LAD prior to widely patent mid LAD stent Chronic subtotal occlusion of mid RCA with brisk [id number] collaterals. 2. Normal intracardiac filling pressure 3. Unsuccessful attempt at IVUS of proximal/mid LAD disease due to inability to pass catheter across calcified stenosis. Recommendations: No apparent acute, high risk CAD. Suspect mild HS TropI elevation secondary to demand ischemia in the setting of hypertension on chronic severe CAD. Will monitor overnight on continued heparin infusion If stable overnight okay with discharge on increased antianginal/antihypertensives Continue DAPT with aspirin, clopidogrel Case discussed with her primary obstetrics specialist Dr. Palacios at [facility]. He will arrange follow-up to discuss long-term options including medical management, complex PCI potentially requiring arthrectomy or CABG. Hemodynamics Rest Ao:: 105/50/73 Final Ao: 141/60/90 LV: 132/15 Recommendations Recommendations: Medical Therapy and/or Counseling Radiation Exposure (mGy) 2259 Contrast (mls) 125 Anesthesia Moderate 7951-0572 Procedural Complication(s) None Disposition PCU I attest to the content of the Intraoperative Record and any orders documented therein. Any exceptions are noted below. [facility] Card Cath Procedure Codes Cardiac Catheterization Procedure 1: Cardiovascular Cath Procedures: 31433 Coronaries and LHC (+/-LV) Therapeutic Services & Ancillary Procedure 1: Cardiovascular Tx and Anc Procedures: 54163 IV Ultrasound (Coronary or Graft) Moderate Sedation Procedure 1: Sedation/Anesthesia: 06703 Mod Sedation by the same physician;Init15 Min Child Age 5 & Up Procedure 2: Sedation/Anesthesia: 30051 Mod Sedation by the same physician; Ea [id number] Minutes PG Care Time/CCT Total # of Minutes Spent Total Time Spent with Patient: Total time spent is greater than 50% in coordination of care (as documented) at patient's floor/unit and/or counseling patient:
--- NOTE | 2025-03-18 17:39 | Cardiology Progress Note ---
Date of Service March 18, 2025 Assessment & Plan (1) Coronary artery disease: (2) Hypertension: (3) Left shoulder pain: (4) Atypical chest pain: (5) Elevated troponin: Plan CAD Hypertension Elevated troponin S/P unsuccessful PCI of calcific prox LAD continue IV Heparin for now and reassess in AM Start ASA 81mg po daily start Ranexa 500mg po bid continue Entresto , Crestor, Imdur, Bisoprolol, and Plavix DW Dr. Segovia -> if remains stable DC in AM on DAPT and current cardiac meds F/U with primary manager produce in [place] for further evaluation and possible revascularization Admission and Anticipated Discharge Date Admission Date: March 16, 2025 Subjective Patient on exam is lying in bed in NAD; no c/o cp, sob, palpitations, dizziness s/p card cath Review of Systems Constitutional: no fever, no chills, no body aches and no weight gain Respiratory: no cough and no dyspnea Cardiovascular: as per Subjective / HPI Gastrointestinal: no abdominal pain, no nausea and no vomiting Physical Exam Constitutional: WD/WN, vitals as above well developed and well nourished; no acute distress Eyes: PERRL, conjunctivae normal, anicteric sclerae Neck: trachea midline, no thyromegaly Respiratory: normal respiratory effort, lungs clear to auscultation Cardiovascular: Rate/Rhythm: regular rate and regular rhythm Vessels: jacklyn l peripheral pulses Gastrointestinal (Abdomen): normal bowel sounds, soft, nontender, no hepatosplenomegaly Musculoskeletal: no cyanosis or clubbing, extremities motor strength 5/5 Skin: no rashes, warm and dry Psychiatric: A+Ox3, euthymic affect Results & Data Vital Signs (Past 12 Hours) Vital Signs Temp 36.6 C 03/18/25 15:54 Pulse 75 03/18/25 15:54 Resp 18 03/18/25 15:54 BP 110/66 03/18/25 15:54 Pulse Ox 92 03/18/25 15:54 O2 Del Method Room Air 03/18/25 15:54 Intake & Output 03/17/25 03/18/25 03/18/25 18:59 06:59 18:59 Intake Total 795.917 / 932.200 136.283 / 932.200 251.883 / 251.883 Balance 795.917 / 932.200 136.283 / 932.200 251.883 / 251.883 Weight 75.7 kg Intake: IV 245.917 / 382.200 136.283 / 382.200 251.883 / 251.883 Heparin 67436 Unit/500 ml D5w 245.917 / 382.200 136.283 / 382.200 251.883 / 251.883 25,000 units In 500 ml @ 850 UNITS/HR 17 mls/hr IV .Q24H VINAY Rx#:[id number] Oral 550 / 550 Other: Other Intake Source Npo # Unmeasured Voids 1 1 Weight Measurement Method Built in [facility] Vital Signs Temp Pulse Pulse Resp BP BP Pulse Ox 03/18/25 15:54 36.6 C 75 18 110/66 92 03/18/25 14:00 75 12 117/70 96 03/18/25 13:45 36.7 C 95 H 14 146/81 H 95 03/18/25 13:30 36.7 C 70 12 127/77 98 03/18/25 13:25 59 L 16 141/105 H 95 03/18/25 13:10 71 16 140/96 96 03/18/25 13:05 75 03/18/25 10:24 67 18 146/93 H 97 03/18/25 09:00 03/18/25 07:46 36.4 C L 65 18 152/85 H 95 03/18/25 07:00 Pulse Ox O2 Del Method O2 Del Method 03/18/25 15:54 Room Air 03/18/25 14:00 Room Air 03/18/25 13:45 Room Air 03/18/25 13:30 Room Air 03/18/25 13:25 Room Air 03/18/25 13:10 Room Air 03/18/25 13:05 03/18/25 10:24 Room Air 03/18/25 09:00 Room Air 03/18/25 07:46 Room Air 03/18/25 07:00 96 Room Air Laboratory Results Laboratory Results - last 48 hr 03/16/25 03/17/25 03/17/25 20:06 05:22 13:46 WBC 5.93 RBC 3.85 L Hgb 8.9 L Hct 30.0 L MCV 77.9 L MCH 23.1 L MCHC 29.7 L RDW Std Deviation 43.5 RDW Coeff of Tae 15.3 H Plt Count 329 MPV 8.9 L Immature Gran % (Auto) 0.2 Neut % (Auto) 56.6 Lymph % (Auto) 30.2 [place] % (Auto) 9.1 Eos % (Auto) 3.2 Baso % (Auto) 0.7 Neut # (Auto) 3.36 Lymph # (Auto) 1.79 [place] # (Auto) 0.54 Eos # (Auto) 0.19 Baso # (Auto) 0.04 Immature Gran # (Auto) 0.01 Activ Coag Time Kaolin Heparin Anti-Xa, Unfract 0.13 L 0.44 Sodium 137 Potassium 3.8 Chloride 109 H Carbon Dioxide 22 Anion Gap 6 BUN 19 Creatinine 0.86 Est Cr Clr Drug Dosing 47.2 eGFR 66.57 BUN/Creatinine Ratio 22.1 H Glucose 107 H Calcium 8.9 Phosphorus Magnesium Troponin I High Sens 619.9 H* D 03/18/25 03/18/25 06:16 12:38 WBC 5.88 RBC 4.24 Hgb 9.9 L Hct 32.8 L MCV 77.4 L MCH 23.3 L MCHC 30.2 L RDW Std Deviation 43.6 RDW Coeff of Tae 15.5 H Plt Count 316 MPV 8.4 L Immature Gran % (Auto) Neut % (Auto) Lymph % (Auto) [place] % (Auto) Eos % (Auto) Baso % (Auto) Neut # (Auto) Lymph # (Auto) [place] # (Auto) Eos # (Auto) Baso # (Auto) Immature Gran # (Auto) Activ Coag Time Kaolin 199 H Heparin Anti-Xa, Unfract 0.41 Sodium 138 Potassium 4.0 Chloride 107 Carbon Dioxide 24 Anion Gap 7 BUN 20 Creatinine 0.87 Est Cr Clr Drug Dosing 45.9 eGFR 65.66 BUN/Creatinine Ratio 23.0 H Glucose 97 Calcium 9.3 Phosphorus 3.8 Magnesium 2.3 Troponin I High Sens 231.6 H* D Diagnostic Findings Cardiac Enzymes 03/18/25 Range/Units 06:16 Troponin I High Sens 231.6 H* D (0-14) pg/ml CBC 03/18/25 Range/Units 06:16 WBC 5.88 (4.8-10.8) K/ul RBC 4.24 (4.20-5.40) M/uL Hgb 9.9 L (12.0-16.0) g/dl Hct 32.8 L (37.0-47.0) % Plt Count 316 (130-400) K/uL Comprehensive Metabolic Panel 03/18/25 Range/Units 06:16 Sodium 138 (136-145) mmol/L Potassium 4.0 (3.5-5.1) mmol/L Chloride 107 (98-107) mmol/L Carbon Dioxide 24 (21-32) mmol/L BUN 20 (6-23) mg/dl Creatinine 0.87 (0.6-1.2) mg/dl Glucose 97 (70-99(Fasting)) mg/dl Calcium 9.3 (8.6-10.3) mg/dl Intake and Output 03/18/25 03/18/25 03/18/25 06:59 14:59 22:59 Intake Total 251.883 / 251.883 Balance 251.883 / 251.883 Intake: IV 251.883 / 251.883 Heparin 51986 Unit/500 ml D5w 251.883 / 251.883 25,000 units In 500 ml @ 850 UNITS/HR 17 mls/hr IV .Q24H VINAY Rx#:[id number] Other: Other Intake Source Npo # Unmeasured Voids 1 1 Weight 75.7 kg Weight Measurement Method Built in [facility] Data: Bioanalyst Cardiac Status Clinical evaluation leading to the procedure CAD Presenation: Non STEMI Diagnostic Physicians Name: Puneet Segovia MD Closure Device Recommendations: Medical Therapy and/or Counseling Cardiac Cath Procedure Full Procedure Date March 18, 2025 Pre-Procedure Diagnosis Pre-Procedure Diagnosis: Non STEMI AUC Score AUC Score: 8 Post-Procedure Diagnosis Post-Procedure Diagnosis: Severe CAD and Normal Intracardiac Pressures Procedure(s) Performed Procedure(s) Performed: Coronary Angiography, Left Heart Cath and IVUS Mobile Therapist Puneet Segovia MD Stereo Plotter Operator(s) Radha Estimated Blood Loss Estimated Blood Loss: 20 Medication(s) Medication(s): Clopidogrel, Fentanyl, Heparin, Lidocaine 1%, Nicardipine, Nitroglycerin and Versed Summary of Findings Indication: NSTEMI. History of CAD post prior stent to mid LAD 03/2024. Known RCA [employer] Access: 6 Fr slender right radial artery Catheters: [place], EBU 3.5 guide Findings: LM -calcified, normal caliber, luminal irregularities. LAD -calcified, medium caliber, hazy 80% earlymid stenosis just at takeoff of D1/first septal. Mid LAD stent patent. Remainder of LAD large-caliber without significant disease and wraps around apex. Bifurcating D1 without significant disease. D2 without significant disease. Circumflex -small to medium caliber, 30% mid segment stenosis. Small OM1 without significant disease. Tortuous OM 2 without significant disease. RCA -dominant, heavily calcified, diffuse mild mid segment disease prior to chronic latemid subtotal occlusion with TERESA I flow in distal vessel. Brisk [id number] collaterals retrofills PDA/PLBs. LVEDP -15 IVUS of LAD Attempt made to further evaluate hazy earlymid LAD disease with question of possible acute thrombotic lesion BMW wire navigated across proximal/mid LAD disease Unable to pass IVUS catheter across earlymid stenosis There was some question whether wire briefly traveled extraluminal across stenotic segment and then back into true before stented segment LAD rewired with oversize load pilot escort 50 wire Still unable to pass IVUS catheter. Also unable to pass ACIST FFR catheter across stenosis Stenosis felt to be chronic and heavily calcified. Wire and catheters removed. No apparent complications on post angiography. Arterial Closure: TR band Summary: 1. Multivessel coronary artery disease - 80% calcified earlymid LAD prior to widely patent mid LAD stent Chronic subtotal occlusion of mid RCA with brisk [id number] collaterals. 2. Normal intracardiac filling pressure 3. Unsuccessful attempt at IVUS of proximal/mid LAD disease due to inability to pass catheter across calcified stenosis. Recommendations: No apparent acute, high risk CAD. Suspect mild HS TropI elevation secondary to demand ischemia in the setting of hypertension on chronic severe CAD. Will monitor overnight on continued heparin infusion If stable overnight okay with discharge on increased antianginal/antihypertensives Continue DAPT with aspirin, clopidogrel Case discussed with her primary manager produce Dr. Palacios at [facility]. He will arrange follow-up to discuss long-term options including medical management, complex PCI potentially requiring arthrectomy or CABG. Hemodynamics Rest Ao:: 105/50/73 Final Ao: 141/60/90 LV: 132/15 Recommendations Recommendations: Medical Therapy and/or Counseling Radiation Exposure (mGy) 2259 Contrast (mls) 125 Anesthesia Moderate [id number] Procedural Complication(s) None Disposition PCU I attest to the content of the Intraoperative Record and any orders documented therein. Any exceptions are noted below. Medications Administered Home Medications Medication Instructions Recorded Confirmed Last Taken bisoprolol fumarate 5 mg tablet 5 mg PO BID 03/16/25 03/16/25 1 Day Ago ~03/15/25 cholecalciferol (vitamin D3) 100 1,000 unit PO DAILY 03/16/25 03/16/25 1 Day Ago mcg (4,000 unit) capsule ~03/15/25 clopidogrel 75 mg tablet (Plavix) 75 mg PO DAILY 03/16/25 03/16/25 1 Day Ago ~03/15/25 empagliflozin 10 mg tablet 10 mg PO DAILY 03/16/25 03/16/25 1 Day Ago (Jardiance) ~03/15/25 isosorbide mononitrate 30 mg 30 mg PO DAILY 03/16/25 03/16/25 1 Day Ago tablet,extended release 24 hr ~03/15/25 rosuvastatin 20 mg tablet 20 mg PO HS 03/16/25 03/16/25 1 Day Ago ~03/15/25 sacubitril 97 mg-valsartan 103 mg 1 tab PO BID 03/16/25 03/16/25 1 Day Ago tablet (Entresto) ~03/15/25 alprazolam 0.25 mg tablet 0.25 mg PO HS PRN Anxiety 03/17/25 03/17/25 Unknown Active Medications Generic Name Dose Route Start Last Admin Trade Name Freq PRN Reason Stop Dose Admin Bisoprolol Fumarate 5 mg 03/16/25 05:25 03/18/25 09:35 Bisoprolol Fumarate 5 Mg Tab PO 04/15/25 05:24 5 mg BID VINAY Administration Clopidogrel Bisulfate 75 mg 03/16/25 09:00 03/18/25 09:35 Clopidogrel Bisulfate 75 Mg Tab PO 04/15/25 08:59 75 mg DAILY VINAY Administration Empagliflozin 10 mg 03/16/25 09:00 03/18/25 09:35 Empagliflozin 10 Mg Tab PO 04/15/25 08:59 10 mg DAILY VINAY Administration Heparin Sodium/Dextrose 25,000 units in 500 mls @ 17 mls/hr 03/18/25 15:00 03/18/25 16:18 Heparin 99936 Unit/500 Ml D5w IV 04/17/25 14:59 850 units/hr .Q24H VINAY 17 mls/hr Administration Protocol 850 UNITS/HR Isosorbide Mononitrate 30 mg 03/16/25 09:00 03/18/25 09:35 Isosorbide [place] Extended Rel 30 Mg Tabcr PO 04/15/25 08:59 30 mg DAILY VINAY Administration Rosuvastatin Calcium 20 mg 03/16/25 21:00 03/17/25 21:08 Rosuvastatin Calcium 20 Mg Tab PO 04/15/25 20:59 20 mg HS VINAY Administration Sacubitril/Valsartan 1 tab 03/16/25 09:00 03/18/25 09:35 Valsartan/Sacubitril 103/97mg Tab PO 04/15/25 08:59 1 tab BID VINAY Administration PG Care Time/CCT Total # of Minutes Spent Total Time Spent with Patient: Total time spent is greater than 50% in coordination of care (as documented) at patient's floor/unit and/or counseling patient: Coding Level of Care Code 00297 SUB INP/OBS CARE 3/50MIN Diagnoses Coronary artery disease I25.10 Hypertension I10 Chronic left shoulder pain M25.512; G89.29 Chronicity: chronic Atypical chest pain R07.89 Elevated troponin R79.89 (3) Left shoulder pain Chronicity: chronic Qualified Code(s): M25.512 - Pain in left shoulder; G89.29 - Other chronic pain
[2025-03-18] MEDS: RANOLAZINE 500 MG ER TAB PO SCH (21:37)
[2025-03-18 23:40] LABS: ANTI-Xa, UFH(UnfractionatedHep 0.35 IU/ml (0.3-0.7)
[2025-03-19 06:24] LABS: Hematocrit (blood only) 30.0 % (37.0-47.0); Hemoglobin 9.0 g/dl (12.0-16.0); Mean Corpuscular Hemoglobin 23.1 pg (25.0-34.0); Mean Corpuscular Volume 76.9 fL (80.0-100.0); Platelet Count 303 K/uL (130-400); RDW Standard Deviation 43.2 fL (36.4-46.3); Red Blood Count 3.90 M/uL (4.20-5.40); White Blood Count 5.33 K/ul (4.8-10.8)
[2025-03-19 06:45] LABS: Anion Gap 7.0 (3-11); Blood Urea Nitrogen 22.0 mg/dl (6-23); Calcium 8.9 mg/dl (8.6-10.3); Carbon Dioxide 24.0 mmol/L (21-32); Chloride 106.0 mmol/L (98-107); Creatinine Clr Calc Pharmacy 44.6 ml/min; Glucose 93.0 mg/dl (70-99(Fasting)); Potassium 3.8 mmol/L (3.5-5.1); Sodium 137.0 mmol/L (136-145)
[2025-03-19 07:25] LABS: ANTI-Xa, UFH(UnfractionatedHep 0.41 IU/ml (0.3-0.7)
[2025-03-19] MEDS ORDERED: ASPIRIN 81 MG ECTAB PO SCH (09:00)
--- NOTE | 2025-03-19 09:11 | Discharge Summary ---
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 Resident of [facility]. Arrived in town 2 days [employer] for local convention. 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 Patient with history of chronic intermittent shoulder pain, has been ongoing for at least 5 years. Left shoulder XR revealed severe osteoarthritis with rotator cuff arthropathy. Orthopedics evaluated. -Chronic problem, no acute surgical intervention needed at this time. -Recommend outpatient orthopedic follow-up once back in [place]. Feel this may have been referred pain ISO below. No new injury or trauma to left arm/shoulder. Elevated troponin 2/2 demand ischemia ISO HTN and chronic severe CAD History of mid LAD stent placement in March 2024 Troponin trend: 24 -> 90.4 -> 169.8 -> 518.2 -> 798.9 (peak) -> 619.9 -> 231.6 as of 03/18/2025. EKG revealed NSR with questionable change in initial forces of anterior leads, no baseline EKG to compare to. Chest CTA without evidence of PE, dilated main pulmonary trunk suggestive of pulmonary HTN. TTE with LVEF = 55-60%, no wall motion abnormality, non-dilated cardiac chambers, no significant valvular pathology. S/p cardiac cath on 03/18/2025 with findings of multivessel CAD, 80% calcified early-mid LAD prior to widely patent mid LAD stent, chronic subtotal occlusion of mid RCA with brisk [id number] collaterals, normal intracardiac filling pressure. Unsuccessful attempt at IVUS of proximal/mid LAD disease due to inability to pass catheter across calcified stenosis. No apparent acute, high risk CAD. Suspect mild troponin elevation secondary to demand ischemia in the setting of hypertension and chronic severe CAD. Patient monitored overnight s/p cardiac cath on continued IV heparin infusion. No recurrence of pain, VS remained stable. IV heparin infusion stopped this morning. Case was discussed between Dr. Segovia and the patient's primary water plant maintenance mechanic, Dr. Palacios, at [facility] in [place]. Dr. Palacios to arrange follow-up with the patient to discuss long- term options including medical management, complex PCI potentially requiring arthrectomy or CABG. Continue Plavix, Imdur, statin and Jardiance. Started on ASA - continue. Cardiology recommended initiation of Ranexa. After further discussion with the patient, she mentions she would like to hold off on initiating this medication for now. Discussed the benefits of Ranexa including reduced myocardial oxygen demand and reduction of angina frequency. Patient would still like to wait until further discussion with her primary water plant maintenance mechanic prior to starting this medication. Labile HTN BP has been overall well-controlled. Patient notes history of hard to control HTN. Follows with Dr. Charlie Palacios (interventional cardiology) in [place]. Continue Entresto and bisoprolol. Prediabetes Hyperglycemia noted on admission, hemoglobin A1c found to be 6.3%. Discussed with patient and advised further follow-up with PCP. History of right breast cancer s/p surgery and radiation Chest CTA: Approximately [id number] soft tissue density lesion with peripheral calcifications and involvement of underlying chest muscles is seen in right breast. Discussed with patient, recommend close follow-up with PCP to arrange further investigation into this. Chronic anemia Hemoglobin remained around baseline. Patient educated to monitor for s/sx of bleeding while on DAPT. PCP: Cedrick Gregorio MD [[facility] - [place], [place]] Disposition: Patient is being discharged home in stable condition with close PCP and cardiology follow-up. Patient's daughter and son-in-law present at bedside this morning and updated on the above plans of care. All questions were answered to the best of my ability. Patient seen in collaboration with Dr. Momin. Please see addendum. I spent a total of 65 minutes coordinating, documenting, and providing care for this patient excluding time spent in the performance of separately billed services or time spent by another provider/QHP. This included personally reviewing all current laboratories and imaging studies, medical reconciliation, outpatient chart review and discussion with specialists. This chart was completed in part utilizing Speech Voice Recognition Software. Grammatical errors, random word insertions, pronoun errors, and incomplete sentences are an occasional consequence of this system due to software limitations, ambient noise, and hardware issues. Any formal questions or concerns about the content, text, or information contained within the body of this dictation should be directly addressed to the provider for clarification. Notes For Next Care Provider Ms. De Leon was admitted to [facility] on 03/16/2025 with acute on chronic left shoulder pain. Imaging revealed severe osteoarthritis with rotator cuff arthropathy. Orthopedic surgery evaluated the patient. Recommended outpatient orthopedic follow-up back in [place], no acute surgical intervention needed. Feel this may have been referred pain in setting of elevated troponin secondary to demand ischemia in the setting of HTN and chronic severe CAD. History of mid LAD stent placement March 2024. S/p cardiac cath on 03/18/2025 with findings of multivessel CAD, 80% calcified early-mid LAD prior to a widely patent mid LAD stent. Unsuccessful attempt at IVUS of proximal/mid LAD disease due to inability to pass catheter across calcified stenosis. Patient kept overnight s/p cardiac cath for monitoring on IV heparin infusion. No recurrence of pain, vital signs remained stable. Case discussed with interventional cardiology. No apparent acute, high risk CAD. Patient's primary water plant maintenance mechanic to arrange close follow-up to discuss long-term options including medical management, complex PCI potentially requiring arthrectomy or CABG. Patient discharged home in stable condition on 03/19/2025. Medication Changes From Visit Aspirin 81mg daily Admission HPI Per Admitting Provider History obtained from patient and records. Medical history significant for CHF, CAD status post stent (2023), hypertension, hyperlipidemia, right breast cancer status post surgery/radiation, chronic anemia (baseline hemoglobin of 10). Patient is a resident of [place] who arrived in town 2 days ago to attend a local convention. Recent confinement last month at [facility] for lower GI bleed attributed to diverticulosis. Hemoglobin 10 during confinement as per patient. Patient has had intermittent left shoulder pain occurring about twice a year for about the last 5 years. Decreased ability to elevate left upper extremity for a few years now as per dawna ocampo. No recollection of trauma or exertion except for [place] incident [place] the beach last [place] after a person accidentally bumped into her beach chair. Transient neck pain following episode. Patient roused from sleep by more intense achy left shoulder pain going to the elbow. Denies headache, chest pain, SOB. Denies cough or fluid retention. Patient had substernal chest without shoulder radiation last year when she had her heart attack which led to stent placement at [place], [place]. Patient compliant with home medications. Denies unusual stress. [facility] water plant maintenance mechanic concerned about uncontrolled blood pressure on last outpatient visit last month. Denies sleep apnea concerns. SBP 170s upon arrival at the ER. Patient currently comfortable at the ER. 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 Admission Exam Per Admitting Provider GENERAL: Comfortable, pleasant, obese, no respiratory distress SKIN: Pallor, warm HEENT: Pale palpebral conjunctivae, no ptosis, dry buccal mucosa NECK : Supple, no tenderness CHEST : CTA, no tenderness HEART : RRR, systolic murmur ABDOMEN: Some distention, nontender EXTREMITIES : Left shoulder tenderness with limited elevation, no LE swelling/tenderness, palpable pulses, no other conspicuous deformities noted NEUROLOGIC : Coherent, no facial asymmetry, no other gross focality Discharge Exam General/Psych: Elderly F, overweight, sitting up in chair, NAD, conversing easily, family at bedside Head: normocephalic, atraumatic Eyes: normal inspection, PERRL, conjunctivae pink ENT: external ear and nose normal, oropharynx normal Neck: normal visual inspection, trachea midline Respiratory: normal respiratory effort, CTAB, no wheeze/rales/rhonchi, no accessory muscle use Cardiovascular: regular rate and rhythm, no murmur/rub/gallop Extremities: no cyanosis or clubbing, normal peripheral pulses, no BLE edema Abdomen/GI: normal bowel sounds, soft, nontender Neurologic/MSK: A+Ox3, motor strength 5/5, moves all extremities Skin: no rashes, normal color, warm and dry Updated Medication List Medication Instructions Recorded Confirmed Type bisoprolol fumarate 5 mg tablet 5 mg PO BID 03/16/25 03/16/25 History cholecalciferol (vitamin D3) 100 1,000 unit PO DAILY 03/16/25 03/16/25 History mcg (4,000 unit) capsule clopidogrel 75 mg tablet (Plavix) 75 mg PO DAILY 03/16/25 03/16/25 History empagliflozin 10 mg tablet 10 mg PO DAILY 03/16/25 03/16/25 History (Jardiance) isosorbide mononitrate 30 mg 30 mg PO DAILY 03/16/25 03/16/25 History tablet,extended release 24 hr rosuvastatin 20 mg tablet 20 mg PO HS 03/16/25 03/16/25 History sacubitril 97 mg-valsartan 103 mg 1 tab PO BID 03/16/25 03/16/25 History tablet (Entresto) alprazolam 0.25 mg tablet 0.25 mg PO HS PRN Anxiety 03/17/25 03/17/25 History aspirin 81 mg tablet,delayed 81 mg PO QAM #30 tabs 03/19/25 Rx release Hospital Stay Data Consultations 03/16/25 03:09 ED Decision to Admit Stat 03/16/25 04:16 Burn CD for patient Stat 03/16/25 04:35 Consult Orthopedic Surgery Routine 03/16/25 06:29 Consult Cardiology Routine Procedures Performed Operation Date: 03/18/25 11:00 Actual Procedures p Cineradiography w/Routine Exam - Puneet Segovia MD p Cath, Left with Cors and Vent - Puneet Segovia MD p IVUS Coronary Single Vessel - Puneet Segovia MD Diagnostic Imagining Performed 03/16/25 01:42 CT angio chest PE protocol Stat 03/18/25 11:30 CL Cath Imgs for PACS use only Routine 03/18/25 13:38 CL IVUS Coronary Single Vessel Routine Discharge Instructions Given to Patient (Per Discharging Provider) You will be contacted soon by your primary water plant maintenance mechanic's office to arrange follow-up within the next 1 to 2 weeks. Please attend your PCP follow-up appointment as outlined below. Date/Time: 03/22/2025 @ 11:00 AM Provider: Cedrick Gregorio MD MEDICATION CHANGES Please continue taking aspirin 81mg daily unless otherwise advised by your primary water plant maintenance mechanic. Seek medical attention if you have: * temperature above 101F * chest pain or trouble breathing * abdominal pain, nausea, vomiting * diarrhea, dark stools or bloody stools * any unanswered questions or concerns Call 911 if symptoms are severe. Please take good care of yourself. It has been a pleasure taking care of you. If you have any questions regarding your recent hospitalization please contact [facility] and [facility] @ [phone]. Total Time Total Time Spent Total Time Spent (In Minutes): 65 Supervising Physician Co-Signing Physician Notes Pt was not able to be seen by myself as patient already left before my round.
[2025-03-19] MEDS: ASPIRIN 81 MG ECTAB PO SCH (09:32)
--- NOTE | 2025-03-22 12:33 | Coding Query ---
To promote full compliance with coding requirements relating to patient care, provider participation is requested in all cases of brush filler hand uncertainty. Please assist us with the question(s) below: Coding Question(s): The diagnosis(es) below was documented in the ( progress notes, etc.) then subsequently fell off all further documentation. Please indicate if it is still a possible diagnosis or ruled out. Physician's Response(s): NSTEMI ( x ) Diagnosed and POA ( ) Diagnosed and not POA ( ) Ruled out ( ) Other (please specify) MTDD
== END 2025-03-19 10:18 | disposition home or self-care (01) | DRG 282 ==
LOC: ED 01:32 → EDINP 01:32 → 4W 14:16